=== PATIENT | female | born 1945 | race Caucasian/White ===

== ENCOUNTER 2016-05-31 05:25 | Emergency (ER) | payer MEDICARE, BC ==
[2016-05-31 05:39] VITALS: BP 145/69
--- NOTE | 2016-05-31 06:52 | ER Document Report ---
ED Extremity Problem, Upper - General Chief Complaint: Arm Pain Stated Complaint: LEFT ARM PAIN Time seen by provider: 06:47 Mode of Arrival: Ambulatory Information source: Patient Notes: 71-year-old female presents to ED for complaint of left hand and wrist pain. She states she was moving wood from the shed to her house and her hand and wrist started hurting. She says she does not remember hitting it she did not fall but the pain is gotten worse throughout the night. She took some Tylenol and used ice on it last night before she went to bed but this morning the pain was woke her up. TRAVEL OUTSIDE OF THE [place] IN LAST 30 DAYS: No - HPI Patient complains to provider of: Left, Hand, Wrist Onset: Yesterday Recent injury: Possibly Where: Home, Outdoors Quality of pain: Sharp, Throbbing Severity of pain: Severe Pain Level: 5 Associated symptoms: None Exacerbated by: Movement Relieved by: Nothing Similar symptoms previously: No Recently seen / treated by doctor: No - Related Data Allergies/Adverse Reactions: Sulfa (Sulfonamide Antibiotics) Allergy (Intermediate, Verified 05/31/16 05:31) Hallucinations morphine [Morphine] Allergy (Unknown, Verified 05/31/16 05:31) Unknown reaction prednisone Allergy (Verified 05/31/16 05:31) procaine [Procaine] Adverse Reaction (Severe, Verified 05/31/16 05:31) UNKNOWN NOVACAINE Allergy (Severe, Uncoded 05/31/16 05:31) Unknown reaction Past Medical History - General Information source: Patient, [facility] Records - Social History Smoking Status: Former Smoker Cigarette use (# per day): No Chew tobacco use (# tins/day): No Smoking Education Provided: No Frequency of alcohol use: Occasional Drug Abuse: None Lives with: Alone Family History: Malignancy - Past Medical History Cardiac Medical History: Reports: Hx Coronary Artery Disease - "CAROTID ARTERY STENOSIS" SUBCLAVIAN STENOSIS LEFT BYPASS GRAFT 10/2010, Hx Hypercholesterolemia , Hx Hypertension Pulmonary Medical History: Reports: Hx COPD - PER H&P" DENIES ON INTERVIEW EENT Medical History: Reports: Eyes Neurological Medical History: Reports: Hx Migraine Endocrine Medical History: Reports: None Renal/ Medical History: Reports: Other - Uterine fibroids and chronic cystitis Malignancy Medical History: Reports: None GI Medical History: Reports: None Musculoskeltal Medical History: Reports Hx Arthritis - LEFT HIP, Reports Hx Musculoskeletal Deformity Skin Medical History: Reports None Psychiatric Medical History: Reports: None Traumatic Medical History: Reports: None Infectious Medical History: Reports: None Past Surgical History: Reports: Hx Coronary Artery Bypass Graft - LEFT SUBCLAVIAN 10/2000, Hx Hysterectomy, Hx Orthopedic Surgery - Bilateral hip replacements, Hx Tubal Ligation, Hx Vascular Surgery, Other - Cataract surgery bilateral Review of Systems - Review of Systems Constitutional: No symptoms reported EENT: No symptoms reported Cardiovascular: No symptoms reported Respiratory: No symptoms reported Gastrointestinal: No symptoms reported Genitourinary: No symptoms reported Female Genitourinary: No symptoms reported Musculoskeletal: Other - Wrist and hand pain Skin: No symptoms reported Hematologic/Lymphatic: No symptoms reported Neurological/Psychological: No symptoms reported -: Yes All other systems reviewed and negative Physical Exam - Vital signs Vitals: Temp Pulse Resp BP Pulse Ox 97.4 F 87 16 145/69 H 98 05/31/16 05:35 05/31/16 05:35 05/31/16 05:35 05/31/16 05:35 05/31/16 05:35 Interpretation: Normal - General General appearance: Appears well, Alert - HEENT Head: Normocephalic, Atraumatic Eyes: Normal Pupils: PERRL - Respiratory Respiratory status: No respiratory distress Chest status: Nontender Breath sounds: Normal Chest palpation: Normal - Cardiovascular Rhythm: Regular Heart sounds: Normal auscultation Murmur: No - Abdominal Inspection: Normal Distension: No distension Bowel sounds: Normal Tenderness: Nontender Organomegaly: No organomegaly - Back Back: Normal, Nontender - Extremities General upper extremity: Normal color, Normal temperature General lower extremity: Normal inspection, Nontender, Normal color, Normal ROM , Normal temperature, Normal weight bearing. No: Alexandre's sign Wrist: Tender, Axial load of thumb pain, Limited ROM. No: Normal, Nontender, Abrasion, Deformity, Dislocation, Ecchymosis, Instability, Laceration, Navicular tenderness, Other Hand: Tender, Ecchymosis, No evidence of human bite, No evidence of FB, Swelling. No: Normal, Nontender, Abrasion, Deformity, Dislocation, Instability , Nail injury, Laceration, Tendon deficit, Other - Neurological Neuro grossly intact: Yes Cognition: Normal Orientation: AAOx4 Aragon Coma Scale Eye Opening: Spontaneous Tamy Coma Scale Verbal: Oriented Aragon Coma Scale Motor: Obeys Commands Tamy Coma Scale Total: 15 Speech: Normal Motor strength normal: LUE, RUE, LLE, RLE Sensory: Normal - Psychological Associated symptoms: Normal affect, Normal mood - Skin Skin Temperature: Warm Skin Moisture: Dry Skin Color: Normal Course - Re-evaluation Re-evalutation: 05/31/16 07:09 Discussed x-ray with patient and written report given to patient. Patient instructed to follow-up with orthopedics today. Patient refuses any medication except for Tylenol. She states she is allergic to all narcotics. - Vital Signs Vital signs: Temp Pulse Resp BP Pulse Ox 97.4 F 87 16 145/69 H 98 05/31/16 05:35 05/31/16 05:35 05/31/16 05:35 05/31/16 05:35 05/31/16 05:35 - Diagnostic Test Radiology reviewed: Image reviewed, Reports reviewed Discharge - Discharge Clinical Impression: Left hand pain, Arthritis Condition: Stable Disposition: HOME, SELF-CARE Additional Instructions: You were seen here today for pain in your left wrist and hand after moving wood last night. Your x-ray shows arthritic changes no acute fractures noted. A copy of the x- ray report was given to you to take to follow-up with your primary doctor and with orthopedics. Acetaminophen Acetaminophen may be taken for pain relief or fever control. It's much safer than aspirin, offering a wider range of "safe" dosages. It is safe during . Some brand names are Tylenol, Panadol, Datril, Anacin 3, Tempra, and Liquiprin. Acetaminophen can be repeated every four hours. The following are maximum recommended dosages: WEIGHT Dose Drops Elixir Chewable( 80mg) (LBS.) drprs=droppers tsp=teaspoon 6 40 mg .4 ml (1/2) 6-11 80 mg .8 ml (full) 1/2 tsp 1 tab 12-16 120 mg 1 1/2 drprs 3/4 tsp 1 1/2 tabs 17-23 160 mg 2 drprs 1 tsp 2 tabs 24-30 240 mg 3 drprs 1 1/2 tsp 3 tabs 30-35 320 mg 2 tsp 4 tabs 36-41 360 mg 2 1/4 tsp 4 1 /2 tabs 42-47 400 mg 2 1/2 tsp 5 tabs 48-53 480 mg 3 tsp 6 tabs 54-59 520 mg 3 1/4 tsp 6 1 /2 tabs 60-64 560 mg 3 1/2 tsp 7 tabs 65-70 600 mg 3 3/4 tsp 7 1 /2 tabs 71-76 640 mg 4 tsp 8 tabs 77-82 720 mg 4 1/2 tsp 9 tabs 83-88 800 mg 5 tsp 10 tabs >89 pounds or adults 650 mg to 900 mg Acetaminophen can be repeated every four hours. Maximum daily dose not to exceed 4000 mg. These maximum recommended dosages are slightly higher than the dosages written on the product container, but these dosages are very safe and well below the toxic dosage for acetaminophen. Ice & Elevation Apply ice packs frequently against the painful area. Many different schedules are recommended, such as "20 minutes on, 20 minutes off" or "one hour ice, two hours rest." If you need to work, you may need to go longer between ice treatments. You should plan to have the area ice packed AT LEAST one- fourth of the time. The ice should be applied over the wrap, tape, or splint, or over a layer of cloth -- not directly against the skin. Some ice bags have a built-in cloth and can be put directly on the skin. Your injured part should be elevated as much as possible over the next 48 hours. Try to keep the injury above the level of the heart. Avoid use of the injured area. Elevation and rest will decrease the swelling. FOLLOW-UP CARE: If you have been referred to a physician for follow-up care, call the physician s office for an appointment as you were instructed or within the next two days. If you experience worsening or a significant change in your symptoms, notify the physician immediately or return to the Emergency Department at any time for re-evaluation. Forms: Elevated Blood Pressure Referrals: CHAPO LI MD [Primary Care Provider] - Follow up as needed LING ESPINOZA MD [ACTIVE STAFF] - Follow up as needed
[2016-05-31] MEDS ORDERED: ACETAMINOPHEN 325 MG TABLET PO ONE (07:03)
== END 2016-05-31 07:13 | disposition home or self-care (01) ==
LOC: ER 05:25
DX: M19.042 Primary osteoarthritis, left hand (principal); M79.602 Pain in left arm; M79.642 Pain in left hand; M25.532 Pain in left wrist
CPT/HCPCS: 99283; 73110; A9270

== ENCOUNTER → 2018-01-27 | Outpatient (CLI) | payer MEDICARE, BC ==
--- NOTE | 2018-01-27 16:00 | RADIOLOGY REPORT (SQ) ---
EXAM DESCRIPTION: NM 3 PHASE BONE SCAN COMPLETED DATE/TIME: 01/27/2018 3:44 pm REASON FOR STUDY: BILATERAL HIP PAIN M25.551 PAIN IN RIGHT HIP M25.552 PAIN IN LEFT HIP COMPARISON: None recent. RADIONUCLIDE AND DOSE: Total of 42.7 millicuries Tc99m MDP. 1st dose of 21.1 mCi infiltrated. The route of agent administration: Intravenous. ADDITIONAL DRUGS AND DOSES: None. TECHNIQUE: Following injection of the radiopharmaceutical, serial blood flow images acquired. Equil ibrium blood pool images then acquired. Routine delayed images at 3 hour acquired of the areas of cl inical concern with additional focused images as needed. AREA OF INTEREST: Bilateral hips. LIMITATIONS: None. FINDINGS: VASCULAR FLOW IMAGES: No asymmetry or focal areas of hyperemia. BLOOD POOL IMAGES: No asymmetry or focal areas of soft-tissue hyper-perfusion. BONES: Expected photopenia associated with bilateral hip arthroplasty. Artifact from the urinary hilton dder. KIDNEYS: Kidneys not imaged. OTHER: No other significant finding. IMPRESSION: No evidence of infection or loosening. COMMENT: Quality measure 147: Current bone scan is compared with any available plain radiographs, p rior bone scans, and CT/MRI. TECHNICAL DOCUMENTATION: JOB ID: [id number] [employer]- All Rights Reserved Reading location - IP/workstation name: [email or web address]
== END ==
LOC: RAD 10:32
PROVIDERS: ATTEND Orthopaedic Surgery
DX: M25.551 Pain in right hip (principal); M25.552 Pain in left hip
CPT/HCPCS: 78315; A9561; Q9969

== ENCOUNTER → 2018-02-06 | Outpatient (CLI) | payer MEDICARE, BC ==
[2018-02-06 09:37] LABS: ABSOLUTE EOSINOPHILS # (AUTO) 0.2 10^3/uL (0.0-0.6); ABSOLUTE LYMPHOCYTES (AUTO) 1.7 10^3/uL (0.5-4.7); ABSOLUTE MONOCYTES (AUTO) 0.5 10^3/uL (0.1-1.4); ABSOLUTE NEUT (AUTO) 4.3 10^3/uL (1.7-8.2); BASOPHILS % (AUTO) 0.6 % (0-2); EOSINOPHILS % (AUTO) 3.5 % (0-6); HEMATOCRIT 31.8 % (36.0-47.0); HEMOGLOBIN 10.9 g/dL (12.0-15.5); LYMPHOCYTES % (AUTO) 24.9 % (13-45); MEAN CORPUSCULAR HEMOGLOBIN 35.6 pg (27.0-33.4); MEAN CORPUSCULAR HGB CONC 34.4 g/dL (32.0-36.0); MEAN CORPUSCULAR VOLUME 103 fl (80-97); MONOCYTES % (AUTO) 6.8 % (3-13); PLATELET COUNT 371 10^3/uL (150-450); RED BLOOD COUNT 3.07 10^6/uL (3.72-5.28); RED CELL DISTRIBUTION WIDTH 14.5 % (11.5-14.0); SEGMENTED NEUTROPHILS % (AUTO) 64.2 % (42-78); TOTAL CELLS COUNTED % (AUTO) 100 %; WHITE BLOOD COUNT 6.7 10^3/uL (4.0-10.5)
[2018-02-06 10:17] LABS: ERYTHROCYTE SEDIMENTATION RATE 64 mm/hr (0-30)
[2018-02-06 11:39] LABS: ANION GAP 9 (5-19); BLOOD UREA NITROGEN 29 mg/dL (7-20); CALCIUM 9.4 mg/dL (8.4-10.2); CARBON DIOXIDE 29 mmol/L (22-30); CHLORIDE 99 mmol/L (98-107); GLUCOSE 100 mg/dL (75-110); POTASSIUM 3.9 mmol/L (3.6-5.0); SODIUM 136.7 mmol/L (137-145)
[2018-02-06 11:41] LABS: C-REACTIVE PROTEIN < 5.0 mg/L (<10.0)
== END ==
LOC: OD 08:08
PROVIDERS: ATTEND Orthopaedic Surgery
DX: M54.5 Low back pain (principal)
CPT/HCPCS: 36415; 80048; 85025; 85652; 86140

== ENCOUNTER 2018-07-24 16:18 | Emergency (ER) | payer MEDICARE, BC ==
--- NOTE | 2018-07-24 16:50 | ER Document Report ---
ED Medical Screen (RME) - General Chief Complaint: Fall Injury Stated Complaint: FALL Time Seen by Provider: 07/24/18 16:40 Primary Care Provider: LING ESPINOZA MD [Primary Care Provider] - Follow up as needed Mode of Arrival: Wheelchair Information source: Patient Notes: Patient is a 73-year-old female who presents to the emergency department doing a head CT. Patient reports she fell on . She states she lost consciousness after the fall, she states she continues to have slurred speech since as well as blurred vision and difficulty writing. Patient was initially seen by her primary care provider today however they wanted her to be transported to the emergency department. Exam: Patient is awake, alert and answering questions appropriately. Ecchymosis noted around both eyes. I have greeted and performed a rapid initial assessment of this patient. A comprehensive ED assessment and evaluation of the patient, analysis of test results and completion of the medical decision making process will be conducted by additional ED providers. Dictation of this chart was performed using voice recognition software; therefore, there may be some unintended grammatical errors. TRAVEL OUTSIDE OF THE [place] IN LAST 30 DAYS: No - Related Data Allergies/Adverse Reactions: Sulfa (Sulfonamide Antibiotics) Allergy (Intermediate, Verified 05/31/16 05:31) Hallucinations morphine [Morphine] Allergy (Unknown, Verified 05/31/16 05:31) Unknown reaction prednisone Allergy (Verified 05/31/16 05:31) procaine [Procaine] Adverse Reaction (Severe, Verified 05/31/16 05:31) UNKNOWN NOVACAINE Allergy (Severe, Uncoded 05/31/16 05:31) Unknown reaction Past Medical History - Past Medical History Cardiac Medical History: Reports: Hx Coronary Artery Disease - "CAROTID ARTERY STENOSIS" SUBCLAVIAN STENOSIS LEFT BYPASS GRAFT 10/2010, Hx Hypercholesterolemia, Hx Hypertension Pulmonary Medical History: Reports: Hx COPD - PER H&P" DENIES ON INTERVIEW Neurological Medical History: Reports: Hx Migraine Renal/ Medical History: Denies: Hx Peritoneal Dialysis Musculoskeltal Medical History: Reports Hx Arthritis - LEFT HIP, Reports Hx Musculoskeletal Deformity Past Surgical History: Reports: Hx Coronary Artery Bypass Graft - LEFT SUBCLAVIAN 10/2000, Hx Hysterectomy, Hx Orthopedic Surgery - Bilateral hip replacements, Hx Tubal Ligation, Hx Vascular Surgery, Other - Cataract surgery bilateral - Immunizations Hx Diphtheria, Pertussis, Tetanus Vaccination: Yes Physical Exam - Vital signs Vitals: Temp Pulse Resp BP Pulse Ox 97.3 F 84 17 153/75 H 95 07/24/18 16:32 07/24/18 16:32 07/24/18 16:32 07/24/18 16:32 07/24/18 16:32 Course - Vital Signs Vital signs: Temp Pulse Resp BP Pulse Ox 97.3 F 84 17 153/75 H 95 07/24/18 16:32 07/24/18 16:32 07/24/18 16:32 07/24/18 16:32 07/24/18 16:32 Doctor's Discharge - Discharge Referrals: LING ESPINOZA MD [Primary Care Provider] - Follow up as needed
--- NOTE | 2018-07-24 17:16 | RADIOLOGY REPORT (SQ) ---
EXAM DESCRIPTION: CT HEAD WITHOUT COMPLETED DATE/TIME: 07/24/2018 5:11 pm REASON FOR STUDY: fall with loss of consciousness COMPARISON: None. TECHNIQUE: Axial images acquired through the brain without intravenous contrast. Images reviewed wi th bone, brain and subdural windows. Additional sagittal and coronal reconstructions were generated. Images stored on PACS. All CT scanners at this facility use dose modulation, iterative reconstruction, and/or weight based d osing when appropriate to reduce radiation dose to as low as reasonably achievable (ALARA). [facility]: Dose Right [facility]: CareDose [facility]: Dose Right [facility]: Teradose 4D [facility]: Smart [employer] RADIATION DOSE: CT Rad equipment meets quality standard of care and radiation dose reduction techniq ues were employed. CTDIvol: 53.2 mGy. DLP: 937 mGy-cm.mGy. LIMITATIONS: None. FINDINGS: VENTRICLES: Prominent. CEREBRUM: No masses. No hemorrhage. No midline shift. Areas of low density in the white matter mos t likely due to chronic micro-vascular ischemic change. No evidence for acute infarction. CEREBELLUM: No masses. No hemorrhage. No alteration of density. No evidence for acute infarction. EXTRAAXIAL SPACES: Age-related involutional change. No fluid collections. No masses. ORBITS AND GLOBE: Hardware in the left eyelid. No intra- or extraconal masses. Normal contour of gl obe without masses. CALVARIUM: No fracture. PARANASAL SINUSES: No fluid or mucosal thickening. SOFT TISSUES: No mass or hematoma. OTHER: No other significant finding. IMPRESSION: CHRONIC CHANGES OF ATROPHY AND MICROVASCULAR ISCHEMIA. NO ACUTE PROCESS. EVIDENCE OF ACUTE STROKE: NO. TECHNICAL DOCUMENTATION: JOB ID: [id number] Quality ID # [id number]: Final reports with documentation of one or more dose reduction techniques (e.g., Au tomated exposure control, adjustment of the mA and/or kV according to patient size, use of iterative reconstruction technique) 2010 [employer]- All Rights Reserved Reading location - IP/workstation name: [email or web address]
--- NOTE | 2018-07-24 17:18 | RADIOLOGY REPORT (SQ) ---
EXAM DESCRIPTION: CT CERVICAL SPINE WITHOUT COMPLETED DATE/TIME: 07/24/2018 5:11 pm REASON FOR STUDY: fall with loss of consciousness COMPARISON: None. TECHNIQUE: Axial images acquired through the cervical spine without intravenous contrast. Images re viewed with lung, soft tissue and bone windows. Reconstructed coronal and sagittal MPR images review ed. Images stored on PACS. All CT scanners at this facility use dose modulation, iterative reconstruction, and/or weight based d osing when appropriate to reduce radiation dose to as low as reasonably achievable (ALARA). [facility]: Dose Right [facility]: CareDose [facility]: Dose Right [facility]: Teradose 4D [facility]: Smart [employer] RADIATION DOSE: CT Rad equipment meets quality standard of care and radiation dose reduction techniq ues were employed. CTDIvol: 17.5 mGy. DLP: 397 mGy-cm. mGy. LIMITATIONS: None. FINDINGS: ALIGNMENT: Anatomic. MINERALIZATION: Normal. VERTEBRAL BODIES: No fractures or dislocation. DISCS: Multilevel disc space narrowing with osteophytes. FACETS, LATERAL MASSES, POSTERIOR ELEMENTS: Facet arthropathy. No fractures. No dislocation. No ac ngoc findings. HARDWARE: None in the spine. VISUALIZED RIBS: No fractures. LUNG APICES AND SOFT TISSUES: No significant or acute findings. OTHER: No other significant finding. IMPRESSION: CHRONIC DEGENERATIVE CHANGES. NO ACUTE FINDINGS. TECHNICAL DOCUMENTATION: JOB ID: [id number] Quality ID # [id number]: Final reports with documentation of one or more dose reduction techniques (e.g., Au tomated exposure control, adjustment of the mA and/or kV according to patient size, use of iterative reconstruction technique) 2010 [employer]- All Rights Reserved Reading location - IP/workstation name: [email or web address]
--- NOTE | 2018-07-24 18:02 | ER Document Report ---
ED General - General Chief Complaint: Fall Injury Stated Complaint: FALL Time Seen by Provider: 07/24/18 16:40 Primary Care Provider: LING ESPINOZA MD [ACTIVE STAFF] - Follow up as needed Mode of Arrival: Wheelchair Information source: Patient Notes: This is a 73-year-old female with a history of a chronic left Perez's palsy that is referred to the emergency room after a fall 4 nights ago. Patient states last , she awoke in the middle the night having to go to the bathroom. She states she felt absolutely fine at that time. She states she rushed to the bathroom and the lights were off and she fell and hit her head. She does state there was some loss of consciousness at that time. She does states she does have some ecchymoses around the nose, headaches and a sensation of disequilibrium. Patient went to urgent care today and was referred to the emergency room. TRAVEL OUTSIDE OF THE [place] IN LAST 30 DAYS: No - HPI Onset: Last week Onset/Duration: Gradual Quality of pain: Dull Severity: Mild Pain Level: 2 Associated symptoms: denies: Chest pain, Fever, Shortness of breath Exacerbated by: Denies Relieved by: Denies Similar symptoms previously: No Recently seen / treated by doctor: Yes - Related Data Allergies/Adverse Reactions: Sulfa (Sulfonamide Antibiotics) Allergy (Intermediate, Verified 05/31/16 05:31) Hallucinations morphine [Morphine] Allergy (Unknown, Verified 05/31/16 05:31) Unknown reaction prednisone Allergy (Verified 05/31/16 05:31) procaine [Procaine] Adverse Reaction (Severe, Verified 05/31/16 05:31) UNKNOWN NOVACAINE Allergy (Severe, Uncoded 05/31/16 05:31) Unknown reaction Past Medical History - General Information source: Patient - Social History Smoking Status: Never Smoker Cigarette use (# per day): No Chew tobacco use (# tins/day): No Frequency of alcohol use: None Drug Abuse: None Lives with: Family Family History: Malignancy Patient has suicidal ideation: No Patient has homicidal ideation: No - Past Medical History Cardiac Medical History: Reports: Hx Coronary Artery Disease - "CAROTID ARTERY STENOSIS" SUBCLAVIAN STENOSIS LEFT BYPASS GRAFT 10/2010, Hx Hypercholesterolemia, Hx Hypertension Pulmonary Medical History: Reports: Hx COPD - PER H&P" DENIES ON INTERVIEW Neurological Medical History: Reports: Hx Migraine Renal/ Medical History: Denies: Hx Peritoneal Dialysis Musculoskeletal Medical History: Reports Hx Arthritis - LEFT HIP, Reports Hx Musculoskeletal Deformity Past Surgical History: Reports: Hx Coronary Artery Bypass Graft - LEFT SUBCLAVIAN 10/2000, Hx Hysterectomy, Hx Orthopedic Surgery - Bilateral hip replacements, Hx Tubal Ligation, Hx Vascular Surgery, Other - Cataract surgery bilateral - Immunizations Hx Diphtheria, Pertussis, Tetanus Vaccination: Yes Review of Systems - Review of Systems Constitutional: denies: Chills, Fever EENT: See HPI Cardiovascular: denies: Chest pain, Palpitations, Heart racing Respiratory: denies: Cough, Hemoptysis, Short of breath Gastrointestinal: denies: Diarrhea, Vomiting Genitourinary: No symptoms reported Female Genitourinary: No symptoms reported Musculoskeletal: See HPI Skin: See HPI Hematologic/Lymphatic: No symptoms reported Neurological/Psychological: See HPI Physical Exam - Vital signs Vitals: Temp Pulse Resp BP Pulse Ox 97.3 F 84 17 153/75 H 95 07/24/18 16:32 07/24/18 16:32 07/24/18 16:32 07/24/18 16:32 07/24/18 16:32 Notes: Physical exam: GENERAL: This is a 73-year-old female, she is alert and oriented x3, no acute distress. HEAD: Atraumatic, normocephalic. EYES: Pupils equal round and reactive to light, extraocular movements intact, sclera anicteric, conjunctiva are normal. ENT: TMs normal, nares patent, oropharynx clear without exudates. Moist mucous membranes. NECK: Normal range of motion, supple without obvious mass or JVD. LUNGS: Breath sounds clear to auscultation bilaterally and equal. No wheezes rales or rhonchi. HEART: Regular rate and rhythm without murmurs, rubs or gallops. ABDOMEN: Soft, normoactive bowel sounds. No tenderness to palpation. No guarding, no rebound. No masses appreciated. EXTREMITIES: Normal range of motion, no pitting or edema. No clubbing or cyanosis. NEUROLOGICAL: Cranial nerves II through XII grossly intact. Normal speech, moving all extremities. PSYCH: Normal mood, normal affect. SKIN: Warm, Dry, normal turgor, no rashes or lesions noted. Course - Vital Signs Vital signs: Temp Pulse Resp BP Pulse Ox 97.6 F 78 18 165/76 H 96 07/24/18 21:10 07/24/18 21:10 07/24/18 21:10 07/24/18 21:10 07/24/18 21:10 - Diagnostic Test Radiology reviewed: Image reviewed, Reports reviewed - CT of the head shows no bleed. MRI of the brain shows no evidence of stroke. Discharge - Discharge Clinical Impression: Head contusion status post fall, Facial contusion Condition: Stable Disposition: HOME, SELF-CARE Additional Instructions: As we discussed, the CT of the head showed no evidence of bleed. The MRI of the brain showed no evidence of stroke. I do want you to follow-up with both your primary care doctor (Dr. Williamson) as well as Dr. Espinoza as planned. Bring a copy of today's test with you when you go in for evaluation. Continue current medicines. Be very Full when ambulating because it is not uncommon to be dizzy after a fall and head contusion. Return to the emergency room for any weakness, worsening dizziness or any concerns or getting worse. Referrals: LING ESPINOZA MD [ACTIVE STAFF] - Follow up as needed
[2018-07-24 21:12] VITALS: BP 165/76
--- NOTE | 2018-07-24 21:22 | RADIOLOGY REPORT (SQ) ---
EXAM DESCRIPTION: MR BRAIN WITHOUT IV CONTRAST COMPLETED DATE/TME: 07/24/2018 17:58 CLINICAL HISTORY: 73 years, Female, fall, warner, disequilibrium COMPARISON: CT from today's date TECHNIQUE: 280 Images stored on PACS. LIMITATIONS: None. FINDINGS: Sagittal midline anatomic structures show an unremarkable appearance to the pituitary and suprasellar regions. The globes are intact. The paranasal sinuses and mastoid air cells are well aerated. Normal flow void in visualized intracranial vessels. The visualized cranial nerve complex these are unremarkable. There is no intra or extra-axial hemorrhage. Diffusion-weighted images are normal, without evidence for acute infarct. No evidence for mass or midline shift. Diffuse age-appropriate atrophy. Areas of increased FLAIR/T2 white matter signal in the periventricular and subcortical regions consistent with sequelae of small vessel ischemic change. IMPRESSION: Negative for acute intracranial abnormality. Atrophy. Small vessel ischemic change. copyright 2010 [employer]- All Rights Reserved
== END 2018-07-24 21:54 | disposition home or self-care (01) ==
LOC: ER 16:18
DX: S00.93XA Contusion of unspecified part of head, initial encounter (principal); S00.83XA Contusion of other part of head, initial encounter; R55 Syncope and collapse; W19.XXXA Unspecified fall, initial encounter; I25.10 Atherosclerotic heart disease of native coronary artery without angina pectoris; J44.9 Chronic obstructive pulmonary disease, unspecified
CPT/HCPCS: 70450; 70551; 72125; 99284

== ENCOUNTER 2019-03-10 18:26 | Emergency (ER) | payer MEDICARE, BC ==
--- NOTE | 2019-03-10 18:41 | ER Document Report ---
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 Patient denies trauma. Denies pain to her nose. Reports she had to hold pressure for a while to get it stop bleeding. She reports it finally stopped bleeding. Patient also reports that she is extremely thirsty requesting something to drink and reports that she is urinating frequently. Denies history of diabetes. Denies history of high blood pressure. I have greeted and performed a rapid initial assessment of this patient. A comprehensive ED assessment and evaluation of the patient, analysis of test results and completion of the medical decision making process will be conducted by additional ED providers. Dictation of this chart was performed using voice recognition software; therefore, there may be some unintended grammatical errors. TRAVEL OUTSIDE OF THE [place] IN LAST 30 DAYS: No - Related Data Allergies/Adverse Reactions: Sulfa (Sulfonamide Antibiotics) Allergy (Intermediate, Verified 03/10/19 18:32) Hallucinations morphine [Morphine] Allergy (Unknown, Verified 03/10/19 18:32) Unknown reaction prednisone Allergy (Verified 03/10/19 18:32) procaine [Procaine] Adverse Reaction (Severe, Verified 03/10/19 18:32) UNKNOWN NOVACAINE Allergy (Severe, Uncoded 03/10/19 18:32) Unknown reaction Past Medical History - Social History Chew tobacco use (# tins/day): No Frequency of alcohol use: None Drug Abuse: None - Past Medical History Cardiac Medical History: Reports: Hx Coronary Artery Disease - "CAROTID ARTERY STENOSIS" SUBCLAVIAN STENOSIS LEFT BYPASS GRAFT 10/2010, Hx Hypercholesterolemia, Hx Hypertension Pulmonary Medical History: Reports: Hx COPD - PER H&P" DENIES ON INTERVIEW Neurological Medical History: Reports: Hx Migraine. Denies: Hx Parkinson's Disease Renal/ Medical History: Denies: Hx Peritoneal Dialysis Musculoskeltal Medical History: Reports Hx Arthritis - LEFT HIP, Reports Hx Musculoskeletal Deformity Past Surgical History: Reports: Hx Coronary Artery Bypass Graft - LEFT SUBCLAVIAN 10/2000, Hx Hysterectomy, Hx Orthopedic Surgery - Bilateral hip replacements, Hx Tubal Ligation, Hx Vascular Surgery, Other - Cataract surgery bilateral - Immunizations Hx Diphtheria, Pertussis, Tetanus Vaccination: Yes Physical Exam - Vital signs Vitals: Temp Pulse Resp BP Pulse Ox 98.2 F 107 H 18 171/78 H 98 03/10/19 18:28 03/10/19 18:28 03/10/19 18:28 03/10/19 18:28 03/10/19 18:28 Course - Vital Signs Vital signs: Temp Pulse Resp BP Pulse Ox 98.2 F 107 H 18 171/78 H 98 03/10/19 18:28 03/10/19 18:28 03/10/19 18:28 03/10/19 18:28 03/10/19 18:28 Doctor's Discharge - Discharge Referrals: CHAPO LI MD [Primary Care Provider] - Follow up as needed
[2019-03-10 19:25] LABS: ABSOLUTE LYMPHOCYTES (AUTO) 1.4 10^3/uL (0.5-4.7); ABSOLUTE MONOCYTES (AUTO) 0.2 10^3/uL (0.1-1.4); ABSOLUTE NEUT (AUTO) 4.8 10^3/uL (1.7-8.2); BASOPHILS % (AUTO) 0.2 % (0-2); EOSINOPHILS % (AUTO) 0.5 % (0-6); HEMATOCRIT 38.7 % (36.0-47.0); HEMOGLOBIN 13.5 g/dL (12.0-15.5); LYMPHOCYTES % (AUTO) 22.1 % (13-45); MEAN CORPUSCULAR HEMOGLOBIN 36.6 pg (27.0-33.4); MEAN CORPUSCULAR VOLUME 105 fl (80-97); MONOCYTES % (AUTO) 2.6 % (3-13); PLATELET COUNT 286 10^3/uL (150-450); RED CELL DISTRIBUTION WIDTH 14.4 % (11.5-14.0); SEGMENTED NEUTROPHILS % (AUTO) 74.6 % (42-78); TOTAL CELLS COUNTED % (AUTO) 100 %; WHITE BLOOD COUNT 6.4 10^3/uL (4.0-10.5)
[2019-03-10 19:33] LABS: APPEARANCE,URINE SLIGHTLY-CLOUDY; BILIRUBIN,URINE NEGATIVE (NEGATIVE); COLOR,URINE YELLOW; GLUCOSE, URINE NEGATIVE (NEGATIVE); KETONES,URINE TRACE mg/dL (NEGATIVE); LEUKOCYTE ESTERASE,URINE MODERATE (NEGATIVE); NITRITE,URINE NEGATIVE (NEGATIVE); PROTEIN,URINE NEGATIVE (NEGATIVE); URINE SPECIFIC GRAVITY 1.012; UROBILINOGEN,URINE NEGATIVE mg/dL (<2.0)
[2019-03-10 19:43] LABS: ALBUMIN 4.6 g/dL (3.5-5.0); ALKALINE PHOSPHATASE 94 U/L (38-126); ANION GAP 9 (5-19); ASPARTATE AMINO TRANSFERASE 91 U/L (14-36); BILIRUBIN,DIRECT 0.1 mg/dL (0.0-0.4); BILIRUBIN,TOTAL 0.6 mg/dL (0.2-1.3); BLOOD UREA NITROGEN 22 mg/dL (7-20); CALCIUM 9.8 mg/dL (8.4-10.2); CARBON DIOXIDE 30 mmol/L (22-30); CHLORIDE 98 mmol/L (98-107); GLUCOSE 117 mg/dL (75-110); POTASSIUM 3.3 mmol/L (3.6-5.0); TOTAL PROTEIN 8.1 g/dL (6.3-8.2)
[2019-03-10] MEDS ORDERED: CEPHALEXIN 500 MG CAPSULE PO ONE (20:34)
--- NOTE | 2019-03-10 20:58 | ER Document Report ---
ED General - General Chief Complaint: Nose Bleed Stated Complaint: NOSE BLEED Time Seen by Provider: 03/10/19 18:34 Primary Care Provider: CHAPO LI MD [Primary Care Provider] - Follow up as needed Mode of Arrival: Ambulatory TRAVEL OUTSIDE OF THE [place] IN LAST 30 DAYS: No - HPI Notes: Patient is a very pleasant 73-year-old female who presents emergency department for evaluation. She states she had a nosebleed, nontraumatic in origin, that lasted about an hour. She states it was "gushing." Patient also states she is been incredibly thirsty, has had increased urination, frequency, and dysuria. She denies any fevers or chills. No nausea or vomiting. She denies any pain of any sort at this time. - Related Data Allergies/Adverse Reactions: Sulfa (Sulfonamide Antibiotics) Allergy (Intermediate, Verified 03/10/19 18:32) Hallucinations morphine [Morphine] Allergy (Unknown, Verified 03/10/19 18:32) Unknown reaction prednisone Allergy (Verified 03/10/19 18:32) procaine [Procaine] Adverse Reaction (Severe, Verified 03/10/19 18:32) UNKNOWN NOVACAINE Allergy (Severe, Uncoded 03/10/19 18:32) Unknown reaction Past Medical History - General Information source: Patient - Social History Smoking Status: Former Smoker Chew tobacco use (# tins/day): No Frequency of alcohol use: None Drug Abuse: None Family History: Malignancy Patient has suicidal ideation: No Patient has homicidal ideation: No - Past Medical History Cardiac Medical History: Reports: Hx Hypercholesterolemia, Hx Hypertension, Hx Peripheral Vascular Disease - "CAROTID ARTERY STENOSIS" SUBCLAVIAN STENOSIS LEFT BYPASS GRAFT 10/2010 Pulmonary Medical History: Reports: Hx COPD - PER H&P" DENIES ON INTERVIEW Neurological Medical History: Reports: Hx Migraine, Other - Perez's palsy. Denies: Hx Parkinson's Disease Renal/ Medical History: Denies: Hx Peritoneal Dialysis Musculoskeletal Medical History: Reports Hx Arthritis - LEFT HIP, Reports Hx Musculoskeletal Deformity Past Surgical History: Reports: Hx Coronary Artery Bypass Graft - LEFT SUBCLAVIAN 10/2000, Hx Hysterectomy, Hx Orthopedic Surgery - Bilateral hip replacements, Hx Tubal Ligation, Hx Vascular Surgery, Other - Cataract surgery bilateral - Immunizations Hx Diphtheria, Pertussis, Tetanus Vaccination: Yes Review of Systems - Review of Systems Constitutional: No symptoms reported EENT: See HPI Cardiovascular: No symptoms reported Respiratory: No symptoms reported Gastrointestinal: No symptoms reported Genitourinary: See HPI Musculoskeletal: No symptoms reported Skin: No symptoms reported Neurological/Psychological: No symptoms reported Physical Exam - Vital signs Vitals: Temp Pulse Resp BP Pulse Ox 98.2 F 107 H 18 171/78 H 98 03/10/19 18:28 03/10/19 18:28 03/10/19 18:28 03/10/19 18:28 03/10/19 18:28 - Notes Notes: Vital signs reviewed, please refer to chart. Head is normocephalic, atraumatic. Pupils equal round, reactive to light. Nares are patent. She has a scant amount of bright red blood on the right, even less than the left. No active bleeding. Neck is supple without meningismus. Heart is regular rate and rhythm. Lungs are clear to auscultation bilaterally. Abdomen is soft, nontender, normoactive bowel sounds throughout. No CVA tenderness noted. Extremities without cyanosis, clubbing. Posterior calves are nontender. Peripheral pulses are equal. Skin is warm and dry. Patient is awake, alert, neurological exam is nonfocal. Course - Re-evaluation Re-evalutation: 03/10/19 20:58 Patient presents emergency department for evaluation. Laboratory investigations revealed her hemoglobin is actually better than it has been in the past. She has large leukocyte esterase and increased white blood cells in her urine. She is treated for UTI given her symptoms. First dose of Keflex given here. I will send her home with a prescription for same. She is given concerns for nosebleeds as well. She is to return to the ED with worsening or new concerning symptoms of any sort. - Vital Signs Vital signs: Temp Pulse Resp BP Pulse Ox 98.2 F 107 H 18 171/78 H 98 03/10/19 18:28 03/10/19 18:28 03/10/19 18:28 03/10/19 18:28 03/10/19 18:28 - Laboratory Result Diagrams: 03/10/19 19:03 03/10/19 19:03 Laboratory results interpreted by me: 03/10/19 03/10/19 03/10/19 19:03 19:03 19:03 RBC 3.70 L MCV 105 H MCH 36.6 H RDW 14.4 H [place] % (Auto) 2.6 L Sodium 136.7 L Potassium 3.3 L BUN 22 H Est GFR ( Amer) 57 L Est GFR (MDRD) Non-Af 47 L Glucose 117 H AST 91 H Urine Ketones TRACE H Urine Blood SMALL H Ur Leukocyte Esterase MODERATE H Discharge - Discharge Clinical Impression: Epistaxis not due to trauma Urinary tract infection Qualifiers: Urinary tract infection type: site unspecified Hematuria presence: without hematuria Qualified Code(s): N39.0 - Urinary tract infection, site not specified Condition: Stable Disposition: HOME, SELF-CARE Instructions: Cephalexin ([facility]), Urinary Tract Infection ([facility]), Nosebleed Instructions ([facility]) Additional Instructions: Rest. Avoid any trauma to the nose, blowing of the nose. If your nosebleed resumes, pinch anteriorly, hold pressure for 30 minutes. Return if you are unable to get it to stop. Take all the antibiotics as prescribed, starting tomorrow. Stay well-hydrated. Follow-up with your doctor next week. If you develop worsening or new concerning symptoms of any sort, please return immediately to the emergency department for evaluation. Referrals: CHAPO LI MD [Primary Care Provider] - Follow up as needed
[2019-03-10 21:14] VITALS: BP 133/78
== END 2019-03-10 21:13 | disposition home or self-care (01) ==
LOC: ER 18:26
DX: N39.0 Urinary tract infection, site not specified (principal); R04.0 Epistaxis; R63.1 Polydipsia; R35.0 Frequency of micturition; R30.0 Dysuria; Z87.891 Personal history of nicotine dependence; I10 Essential (primary) hypertension; J44.9 Chronic obstructive pulmonary disease, unspecified
CPT/HCPCS: 99283; 36415; 85025; 80053; 81001; A9270

== ENCOUNTER 2019-08-11 12:01 | Inpatient (IN) | payer MEDICARE, BC ==
--- NOTE | 2019-08-11 12:18 | ER Document Report ---
ED Medical Screen (RME) - General Chief Complaint: Dizziness Stated Complaint: Sinus pressure sinus drainage cough Time Seen by Provider: 08/11/19 12:12 Primary Care Provider: CHAPO LI MD [Primary Care Provider] - Follow up as needed Mode of Arrival: Wheelchair Information source: Patient Notes: 74-year-old female presents to ED for complaint of dizziness that started this morning. She states she has had a cough congestion sinus pressure for about 3 weeks. She states she has not had any fevers. She states the dizziness was so bad that she walked right into a wall. She states she is having some congestion and sinus pressure. She is alert oriented respirations regular nonlabored speaking in full sentences. I have reviewed her medical history and this is up-to-date and she does not smoke drink or use any drugs she is a former smoker. I have greeted and performed a rapid initial assessment of this patient. A comprehensive ED assessment and evaluation of the patient, analysis of test results and completion of medical decision making process will be conducted by an additional ED providers. TRAVEL OUTSIDE OF THE [place] IN LAST 30 DAYS: No - Related Data Allergies/Adverse Reactions: Sulfa (Sulfonamide Antibiotics) Allergy (Intermediate, Verified 03/10/19 18:32) Hallucinations morphine [Morphine] Allergy (Unknown, Verified 03/10/19 18:32) Unknown reaction prednisone Allergy (Verified 03/10/19 18:32) procaine [Procaine] Adverse Reaction (Severe, Verified 03/10/19 18:32) UNKNOWN NOVACAINE Allergy (Severe, Uncoded 03/10/19 18:32) Unknown reaction Past Medical History - Past Medical History Cardiac Medical History: Reports: Hx Coronary Artery Disease - "CAROTID ARTERY STENOSIS" SUBCLAVIAN STENOSIS LEFT BYPASS GRAFT 10/2010, Hx Hypercholesterolemia, Hx Hypertension, Hx Peripheral Vascular Disease - "CAROTID ARTERY STENOSIS" SUBCLAVIAN STENOSIS LEFT BYPASS GRAFT 10/2010 Pulmonary Medical History: Reports: Hx COPD - PER H&P" DENIES ON INTERVIEW Neurological Medical History: Reports: Hx Migraine. Denies: Hx Parkinson's Disease Renal/ Medical History: Denies: Hx Peritoneal Dialysis Musculoskeltal Medical History: Reports Hx Arthritis - LEFT HIP, Reports Hx Musculoskeletal Deformity Past Surgical History: Reports: Hx Coronary Artery Bypass Graft - LEFT SUBCLAVI AN 10/2000, Hx Hysterectomy, Hx Orthopedic Surgery - Bilateral hip replacements, Hx Tubal Ligation, Hx Vascular Surgery, Other - Cataract surgery bilateral - Immunizations Hx Diphtheria, Pertussis, Tetanus Vaccination: Yes Physical Exam - Vital signs Vitals: Temp Pulse Resp BP Pulse Ox 97.7 F 87 18 111/62 97 08/11/19 12:05 08/11/19 12:05 08/11/19 12:05 08/11/19 12:05 08/11/19 12:05 Course - Vital Signs Vital signs: Temp Pulse Resp BP Pulse Ox 97.7 F 87 18 111/62 97 08/11/19 12:05 08/11/19 12:05 08/11/19 12:05 08/11/19 12:05 08/11/19 12:05 Doctor's Discharge - Discharge Referrals: CHAPO LI MD [Primary Care Provider] - Follow up as needed
[2019-08-11 12:58] LABS: ABSOLUTE LYMPHOCYTES (AUTO) 0.8 10^3/uL (0.5-4.7); ABSOLUTE MONOCYTES (AUTO) 0.5 10^3/uL (0.1-1.4); ABSOLUTE NEUT (AUTO) 4.5 10^3/uL (1.7-8.2); BASOPHILS % (AUTO) 0.3 % (0-2); EOSINOPHILS % (AUTO) 0.3 % (0-6); HEMATOCRIT 41.5 % (36.0-47.0); HEMOGLOBIN 14.6 g/dL (12.0-15.5); LYMPHOCYTES % (AUTO) 13.9 % (13-45); MEAN CORPUSCULAR HEMOGLOBIN 36.3 pg (27.0-33.4); MEAN CORPUSCULAR HGB CONC 35.1 g/dL (32.0-36.0); MEAN CORPUSCULAR VOLUME 103 fl (80-97); MONOCYTES % (AUTO) 8.1 % (3-13); PLATELET COUNT 307 10^3/uL (150-450); RED BLOOD COUNT 4.02 10^6/uL (3.72-5.28); RED CELL DISTRIBUTION WIDTH 14.9 % (11.5-14.0); SEGMENTED NEUTROPHILS % (AUTO) 77.4 % (42-78); TOTAL CELLS COUNTED % (AUTO) 100 %; WHITE BLOOD COUNT 5.8 10^3/uL (4.0-10.5)
[2019-08-11 13:11] LABS: ALBUMIN 4.4 g/dL (3.5-5.0); ALKALINE PHOSPHATASE 131 U/L (38-126); ANION GAP 5 (5-19); ASPARTATE AMINO TRANSFERASE 37 U/L (14-36); BILIRUBIN,TOTAL 0.8 mg/dL (0.2-1.3); BLOOD UREA NITROGEN 22 mg/dL (7-20); CALCIUM 10.2 mg/dL (8.4-10.2); CARBON DIOXIDE 30 mmol/L (22-30); CHLORIDE 102 mmol/L (98-107); GLUCOSE 107 mg/dL (75-110); POTASSIUM 4.4 mmol/L (3.6-5.0); TOTAL PROTEIN 7.5 g/dL (6.3-8.2)
[2019-08-11 13:19] LABS: A TYPE INFLUENZA AG NEGATIVE (NEGATIVE)
[2019-08-11 13:20] LABS: B INFLUENZA AG NEGATIVE (NEGATIVE)
[2019-08-11] MEDS ORDERED: NORMAL SALINE 500 ML IV ONE (14:17)
--- NOTE | 2019-08-11 14:54 | RADIOLOGY REPORT (SQ) ---
EXAM DESCRIPTION: CHEST SINGLE VIEW IMAGES COMPLETED DATE/TIME: 08/11/2019 2:45 pm REASON FOR STUDY: dizziness/vertigo COMPARISON: 2012. NUMBER OF VIEWS: One view. TECHNIQUE: Single frontal radiographic view of the chest acquired. LIMITATIONS: None. FINDINGS: LUNGS AND PLEURA: No opacities, masses or pneumothorax. No pleural effusion. Attenuated bl ood vessels and flattened clement-diaphragms. MEDIASTINUM AND HILAR STRUCTURES: No masses. Contour normal. HEART AND VASCULAR STRUCTURES: Heart normal in size. Normal vasculature. BONES: No acute findings. HARDWARE: None in the chest. OTHER: No other significant finding. IMPRESSION: COPD. NO ACUTE RADIOGRAPHIC FINDING IN THE CHEST. TECHNICAL DOCUMENTATION: JOB ID: [id number] 2010 [employer] [place]- All Rights Reserved Reading location - IP/workstation name: [email or web address]
--- NOTE | 2019-08-11 16:27 | RADIOLOGY REPORT (SQ) ---
EXAM DESCRIPTION: CT HEAD WITHOUT IMAGES COMPLETED DATE/TIME: 08/11/2019 3:10 pm REASON FOR STUDY: dizziness COMPARISON: None. TECHNIQUE: Axial images acquired through the brain without intravenous contrast. Images reviewed wi th bone, brain and subdural windows. Additional sagittal and coronal reconstructions were generated. Images stored on PACS. All CT scanners at this facility use dose modulation, iterative reconstruction, and/or weight based d osing when appropriate to reduce radiation dose to as low as reasonably achievable (ALARA). [facility]: Dose Right [facility]: CareDose [facility]: Dose Right [facility]: Teradose 4D [facility]: Smart GroupSw[employer] RADIATION DOSE: CT Rad equipment meets quality standard of care and radiation dose reduction techniq ues were employed. CTDIvol: 53.2 mGy. DLP: 937 mGy-cm. mGy. LIMITATIONS: None. FINDINGS: VENTRICLES: Normal size and contour. CEREBRUM: No masses. No hemorrhage. No midline shift. No evidence for acute infarction. Normal gra y/white matter differentiation. Mild patchy periventricular and deep white matter hypodense attenuat ion consistent with chronic small vessel ischemic change. CEREBELLUM: No masses. No hemorrhage. No alteration of density. No evidence for acute infarction. EXTRAAXIAL SPACES: No fluid collections. No masses. ORBITS AND GLOBE: Postoperative change left lobe unchanged. No intra- or extraconal masses. Normal contour of globe without masses. CALVARIUM: No fracture. PARANASAL SINUSES: No fluid or mucosal thickening. SOFT TISSUES: No mass or hematoma. OTHER: No other significant finding. IMPRESSION: No acute intracranial hemorrhage, mass, or evidence of acute territorial infarct. Mild chronic small vessel ischemic changes stable. EVIDENCE OF ACUTE STROKE: NO. COMMENT: Quality ID # [id number]: Final reports with documentation of one or more dose reduction techniques (e.g., Automated exposure control, adjustment of the mA and/or kV according to patient size, use of iterative reconstruction technique) TECHNICAL DOCUMENTATION: JOB ID: [id number] 2010 [employer]- All Rights Reserved Reading location - IP/workstation name: [email or web address]
[2019-08-11] MEDS ORDERED: ASPIRIN 81 MG TABLET, CHEWABLE PO ONE ×2 (16:46→16:50)
[2019-08-11] MEDS ORDERED: ASPIRIN 81 MG TABLET, CHEWABLE ONE (16:49)
[2019-08-11] MEDS ORDERED: MECLIZINE HCL 25 MG TABLET PO ONE (17:34)
[2019-08-11] MEDS ORDERED: ONDANSETRON 4 MG TAB.RAPDIS PO PRN (17:54)
[2019-08-11] MEDS ORDERED: ONDANSETRON HCL INJ/PF 4 MG/2 ML SDV IV PRN (17:54)
--- NOTE | 2019-08-11 18:35 | PDOC H&P ---
History of Present Illness Admission Date/PCP: 08/11/19 18:06 CHAPO LI MD History of Present Illness: RYAN SALEEM is a 74 year old female with past medical history significant for HLD, HTN who presented to ED after 1 day history of progressive dizziness and headache which began after she awoke from sleep and set up. She is also been having some frontal/maxillary sinus pressure which she states is consistent with her recurrent sinusitis and seasonal allergies. She denies any chest pain or shortness of breath at all. For reasons unknown, emergency department tested her for troponin and this came back elevated and the second value was essentially the same. EKG did not show any specific acute findings. Chest x- ray unremarkable. CT head unremarkable. Creatinine was mildly elevated from previous value in the chart at 1.32. 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 She states that this is at her baseline and has not changed at all. She states her PCP will typically give her amoxicillin for 7 days when the symptoms occur and this typically resolves without further issue. Past Medical History Cardiac Medical History: Reports: Coronary Artery Disease - "CAROTID ARTERY STENOSIS" SUBCLAVIAN STENOSIS LEFT BYPASS GRAFT 10/2010, Hyperlipidema, Hypertension, Peripheral Vascular Disease - "CAROTID ARTERY STENOSIS" SUBCLAVIAN STENOSIS LEFT BYPASS GRAFT 10/2010 Pulmonary Medical History: Reports: Chronic Obstructive Pulmonary Disease (COPD) - PER H&P" DENIES ON INTERVIEW Neurological Medical History: Reports: Migraine Musculoskeltal Medical History: Reports: Arthritis - LEFT HIP Hematology: Denies: Anemia, Sickle Cell Disease Past Surgical History Past Surgical History: Reports: Coronary Artery Bypass Graft - LEFT SUBCLAVIAN 10/2000, Hysterectomy, Orthopedic Surgery - Bilateral hip replacements, Tubal Ligation, Vascular Surgery, Other - Cataract surgery bilateral Denies: Amputation Social History Information Source: Patient, Emergency Med Personnel, COUNT INCLUDES [facility] Records Smoking Status: Former Smoker Frequency of Alcohol Use: Rare Hx Recreational Drug Use: No Hx Prescription Drug Abuse: No - Advance Directive Resuscitation Status: Do Not Resuscitate Surrogate healthcare decision maker:: Brother Family History Family History: Hypertension, Malignancy Parental Family History Reviewed: Yes Children Family History Reviewed: Yes Sibling(s) Family History Reviewed.: Yes Medication/Allergy Home Medications: Aspirin [Ecotrin 81 mg EC Tablet] 81 mg PO DAILY 05/04/12 Atorvastatin Calcium [Lipitor 40 mg Tablet] 40 mg PO QHS 05/04/12 Estrogens, Conjugated [Premarin 0.9 mg Tablet] 0.9 mg PO DAILY 05/04/12 Butalb/Acetaminophen/Caffeine [Fioricet (50-325-40 mg) Tablet] 1 tab PO PRN PRN 05/08/12 Amlodipine Besylate 5 mg PO DAILY 03/17/16 Imipramine HCl 10 mg PO DAILY 03/17/16 Losartan Potassium 50 mg PO DAILY 03/17/16 Cephalexin Monohydrate [Keflex 500 mg Capsule] 500 mg PO QID #20 capsule 03/10/19 Allergies/Adverse Reactions: Sulfa (Sulfonamide Antibiotics) Allergy (Intermediate, Verified 03/10/19 18:32) Hallucinations morphine [Morphine] Allergy (Unknown, Verified 03/10/19 18:32) Unknown reaction prednisone Allergy (Verified 03/10/19 18:32) procaine [Procaine] Adverse Reaction (Severe, Verified 03/10/19 18:32) UNKNOWN NOVACAINE Allergy (Severe, Uncoded 03/10/19 18:32) Unknown reaction Review of Systems All systems: reviewed and no additional remarkable complaints except as stated - As per HPI, otherwise negative Physical Exam Vital Signs: Temp Pulse Resp BP Pulse Ox 97.7 F 81 17 139/87 H 97 08/11/19 12:05 08/11/19 18:00 08/11/19 18:01 08/11/19 18:01 08/11/19 18:01 Intake & Output 08/10/19 08/11/19 08/12/19 06:59 06:59 06:59 Intake Total 500 Balance 500 Weight 64.864 kg General appearance: PRESENT: no acute distress, well-developed, well-nourished Head exam: PRESENT: atraumatic, normocephalic, other - Tender maxillary sinus and to a lesser degree frontal sinus when pressure is applied Eye exam: PRESENT: conjunctiva pink Mouth exam: PRESENT: moist Respiratory exam: PRESENT: clear to auscultation can. ABSENT: rales, rhonchi, wheezes Cardiovascular exam: PRESENT: RRR. ABSENT: diastolic murmur, rubs, systolic murmur GI/Abdominal exam: PRESENT: normal bowel sounds, soft. ABSENT: distended, guarding, mass, organolmegaly, rebound, tenderness Extremities exam: ABSENT: pedal edema Musculoskeletal exam: PRESENT: ambulatory Neurological exam: PRESENT: alert, awake, oriented to person, oriented to place, oriented to time, oriented to situation, CN II-XII grossly intact - With the exception of chronic left upper and lower facial droop which patient states is at her baseline. ABSENT: motor sensory deficit Psychiatric exam: PRESENT: appropriate affect, normal mood Skin exam: PRESENT: dry, intact, warm Results Laboratory Results: 08/11/19 12:36 08/11/19 12:36 08/11/19 08/11/19 12:36 12:36 WBC 5.8 RBC 4.02 Hgb 14.6 Hct 41.5 MCV 103 H MCH 36.3 H MCHC 35.1 RDW 14.9 H Plt Count 307 Seg Neutrophils % 77.4 Sodium 137.3 Potassium 4.4 Chloride 102 Carbon Dioxide 30 Anion Gap 5 BUN 22 H Creatinine 1.32 H Est GFR ( Amer) 47 L Glucose 107 Calcium 10.2 Total Bilirubin 0.8 AST 37 H Alkaline Phosphatase 131 H Total Protein 7.5 Albumin 4.4 08/11/19 08/11/19 12:36 15:56 Troponin I 0.209 0.260 Impressions: Chest X-Ray 08/11/19 14:18 IMPRESSION: COPD. NO ACUTE RADIOGRAPHIC FINDING IN THE CHEST. Head CT 08/11/19 14:19 IMPRESSION: No acute intracranial hemorrhage, mass, or evidence of acute territorial infarct. Mild chronic small vessel ischemic changes stable. EVIDENCE OF ACUTE STROKE: NO. Assessment and Plan - Diagnosis (1) Dizziness Is this a current diagnosis for this admission?: Yes Plan: Unclear etiology but suspect due to seasonal allergies and sinusitis; less likely stroke but cannot rule out posterior origin stroke CT head unremarkable Echocardiogram Carotid PVL MRI brain Permissive hypertension for 48 hours or until stroke ruled out which ever comes first Physical therapy consult Aspirin/statin Amoxicillin for 7 days Claritin, fluticasone nasal spray (2) Hypertension Is this a current diagnosis for this admission?: Yes Plan: Patient was unaware that she even had high blood pressure however this is noted in her chart and she is on multiple blood pressure medications Hold home medications for permissive hypertension or until MRI is read if it shows no stroke (3) Hyperlipidemia Is this a current diagnosis for this admission?: Yes Plan: Statin (4) Sinus pressure Is this a current diagnosis for this admission?: Yes Plan: As above (5) Sinusitis Is this a current diagnosis for this admission?: Yes Plan: Recurrent sinusitis Typically treated with amoxicillin per patient, she goes to her PCP and after treatment this does not recur for many months (6) Elevated troponin Is this a current diagnosis for this admission?: Yes Plan: Troponin I and II are flat, trending Echocardiogram EKG did not show acute findings If troponin continues rising consult cardiology Stress testing is reportedly not available at this facility right now due to coronavirus - Time Time Spent with patient: 35 or more minutes Medications reviewed and adjusted accordingly: Yes Anticipated discharge: Home Within: within 48 hours
--- NOTE | 2019-08-11 18:36 | ADVANCED CARE ---
- Diagnosis (1) Dizziness Diagnosis Current: Yes (2) Hypertension Diagnosis Current: Yes (3) Hyperlipidemia Diagnosis Current: Yes (4) Sinus pressure Diagnosis Current: Yes (5) Sinusitis Diagnosis Current: Yes (6) Elevated troponin Diagnosis Current: Yes Attendance: Patient Resuscitation Status: Do Not Resuscitate Discussion: All aspects of CODE STATUS discussed including cardioversion/chest compressions/intubation and patient states that she does not want to be full code and would rather be DNR/DNI. She designates her brother Vikram Haddad as her M POA. Time Spent: 17 minutes
--- NOTE | 2019-08-11 19:38 | RADIOLOGY REPORT (SQ) ---
EXAM DESCRIPTION: MRI HEAD WITHOUT IMAGES COMPLETED DATE/TIME: 08/11/2019 5:59 pm REASON FOR STUDY: Dizziness, possible CVA COMPARISON: None. TECHNIQUE: Multiplanar imaging includes non-contrasted T1, T2, FLAIR, and diffusion with ADC map seq uences. Images stored on PACS. LIMITATIONS: None. FINDINGS: ANATOMY: No anomalies. Normal vascular flow voids. Pituitary fossa normal. CSF SPACES: Normal in size and contour. No hemorrhage. CEREBRUM: Sulci and gyri normal in size and contour. Moderate patchy increased white matter signal o n FLAIR imaging. No evidence of hemorrhage, mass, or extraaxial fluid collection. POSTERIOR FOSSA: No signal alteration. No hemorrhage. No edema, masses or mass effect. Internal noelle tory canals, cerebello-pontine angles, mastoids normal. DIFFUSION IMAGING: Negative for acute or sub-acute infarction. ORBITS: No masses. Globes normal. PARANASAL SINUSES: No fluid levels. Mucosa normal. OTHER: No other significant finding. IMPRESSION: No acute intracranial hemorrhage, mass, or evidence of acute ischemia. Moderate chronic small vessel ischemic change. EVIDENCE OF ACUTE STROKE: NO. TECHNICAL DOCUMENTATION: JOB ID: [id number] 2010 [employer]- All Rights Reserved Reading location - IP/workstation name: [email or web address]
--- NOTE | 2019-08-11 19:46 | ER Document Report ---
Entered by SANDRA SERNA SCRIBE 08/11/19 1418 Acting as scribe for:JUAN C MERCEDES MD ED General - General Chief Complaint: Dizziness Stated Complaint: Sinus pressure sinus drainage cough Time Seen by Provider: 08/11/19 12:12 Mode of Arrival: Wheelchair Information source: Patient Notes: This 30 year old female patient presents to the emergency department today with complaints of dizziness. Patient states she woke up this morning with a frontal headache and dizziness. Patient states she had trouble walking around this morning and had to support herself on the wright. TRAVEL OUTSIDE OF THE [place] IN LAST 30 DAYS: No - Related Data Allergies/Adverse Reactions: Sulfa (Sulfonamide Antibiotics) Allergy (Intermediate, Verified 03/10/19 18:32) Hallucinations morphine [Morphine] Allergy (Unknown, Verified 03/10/19 18:32) Unknown reaction prednisone Allergy (Verified 03/10/19 18:32) procaine [Procaine] Adverse Reaction (Severe, Verified 03/10/19 18:32) UNKNOWN NOVACAINE Allergy (Severe, Uncoded 03/10/19 18:32) Unknown reaction Past Medical History - General Information source: Patient - Social History Smoking Status: Former Smoker Cigarette use (# per day): No Lives with: Alone Family History: Reviewed & Not Pertinent, Malignancy Patient has suicidal ideation: No Patient has homicidal ideation: No - Past Medical History Cardiac Medical History: Reports: Hx Coronary Artery Disease - "CAROTID ARTERY STENOSIS" SUBCLAVIAN STENOSIS LEFT BYPASS GRAFT 10/2010, Hx Hypercholesterolemia, Hx Hypertension, Hx Peripheral Vascular Disease - "CAROTID ARTERY STENOSIS" SUBCLAVIAN STENOSIS LEFT BYPASS GRAFT 10/2010 Pulmonary Medical History: Reports: Hx COPD - PER H&P" DENIES ON INTERVIEW Neurological Medical History: Reports: Hx Migraine, Other - Perez's palsy Musculoskeletal Medical History: Reports Hx Arthritis - LEFT HIP, Reports Hx Musculoskeletal Deformity Past Surgical History: Reports: Hx Coronary Artery Bypass Graft - LEFT SUBCLAVIAN 10/2000, Hx Hysterectomy, Hx Orthopedic Surgery - Bilateral hip replacements, Hx Tubal Ligation, Hx Vascular Surgery, Other - Cataract surgery bilateral - Immunizations Hx Diphtheria, Pertussis, Tetanus Vaccination: Yes Review of Systems - Review of Systems Constitutional: No symptoms reported EENT: No symptoms reported Cardiovascular: See HPI, Dizziness Respiratory: No symptoms reported Gastrointestinal: No symptoms reported Genitourinary: No symptoms reported Female Genitourinary: No symptoms reported Musculoskeletal: No symptoms reported Skin: No symptoms reported Hematologic/Lymphatic: No symptoms reported Neurological/Psychological: See HPI, Headaches -: Yes All other systems reviewed and negative Physical Exam - Vital signs Vitals: Temp Pulse Resp BP Pulse Ox 97.7 F 87 18 111/62 97 08/11/19 12:05 08/11/19 12:05 08/11/19 12:05 08/11/19 12:05 08/11/19 12:05 - General General appearance: Appears well, Alert - HEENT Head: Normocephalic, Atraumatic Eyes: Normal Pupils: PERRL Ears: Normal External canal: Cerumen impaction - Bilaterally R>L - Respiratory Respiratory status: No respiratory distress Chest status: Nontender Breath sounds: Normal Chest palpation: Normal - Cardiovascular Rhythm: Regular Heart sounds: Normal auscultation Murmur: No - Abdominal Inspection: Normal Distension: No distension Bowel sounds: Normal Tenderness: Nontender - Extremities General upper extremity: Normal inspection. No: Edema General lower extremity: Normal inspection. No: Edema - Neurological Neuro grossly intact: Yes Cognition: Normal Orientation: AAOx4 Speech: Normal Cerebellar coordination: Normal Motor strength normal: LUE, RUE, LLE, RLE - Psychological Associated symptoms: Normal affect, Normal mood - Skin Skin Temperature: Warm Skin Moisture: Dry Skin Color: Normal Course - Vital Signs Vital signs: Temp Pulse Resp BP Pulse Ox 97.7 F 81 17 139/87 H 97 08/11/19 12:05 08/11/19 18:00 08/11/19 18:01 08/11/19 18:01 08/11/19 18:01 - Laboratory Result Diagrams: 08/11/19 12:36 08/11/19 12:36 Laboratory results interpreted by me: 08/11/19 08/11/19 12:36 12:36 MCV 103 H MCH 36.3 H RDW 14.9 H BUN 22 H Creatinine 1.32 H Est GFR ( Amer) 47 L Est GFR (MDRD) Non-Af 39 L AST 37 H Alkaline Phosphatase 131 H - EKG Interpretation by Me Additional EKG results interpreted by me: 08/11/19 14:58 Twelve-lead EKG done 1453 shows normal sinus rhythm rate of 72 right atrial abnormality abnormal R wave progression consider lead placement abnormal T waves consider ischemia. Discharge - Discharge Clinical Impression: Dizziness, Elevated troponin I level Condition: Good Disposition: ADMITTED INPATIENT Admitting Provider: Kareem(Hospitalist) Unit Admitted: Telemetry ED NIH Stroke Scale - NIH Stroke Scale *: 1. NIH scale should be completed with appropriate accompanying assessment tools. *: 2. The NIH should reflect what the patient is capable of doing and should not be coached by the clinician. 1a. Level of Consciousness: 0=Alert;keenly responsive -: 1=Drowsy -: 2=Obtunded -: 3=Coma/unresponsive or reflex to noxious stimuli. 1a. Responses: 0 1b. Orientation Questions: a. What month is it? -: b. How old are you? -: 0=Answers both questions correctly. -: 1=Answers one question correctly or patient is intubated or has orotracheal trauma. -: 2=Answers neither question correctly. 1b. Responses: 0 1c. Response to commands: a. Open and close eyes? -: b. Line Director and release hand? -: Credit is given despite weakness. Demonstration of task is permitted. Substitute command if hands cannot be used. -: 0=Performs both tasks correctly -: 1=Performs one task correctly -: 2=Performs neither task correctly 1c. Responses: 0 2. Gaze: Establish eye contact and instruct patient to "Follow my finger" -: 0=Normal -: 1=Partial gaze palsy. Gaze is abnormal in one or both eyes, but where forced deviation or total gaze paresis is not present. -: 2=Forced deviation or total gaze paresis. 2. Responses: 0 3. Visual Pierson: Sees fingers in all four quadrants. -: 0=No visual loss. -: 1=Partial hemianopsia. -: 2=Complete hemianopsia. -: 3=Bilateral hemianopsia (including Cortical blindness) 3. Responses: 0 4. Facial Movement: Instruct patient to: -: a. Show me your teeth -: b. Raise your eyebrows -: c. Close your eyes -: d. Smile -: 0=Normal symmetrical movement -: 1=Minor paralysis (flattened nasolabial fold, asymmetry on smiling). -: 2=Partial paralysis (total or near total paralysis of lower face). -: 3=Complete paralysis of upper and lower face 4. 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 5. Motor functions (left arm): Alternate sides and extend each arm with palms down (90 degrees if sitting or 45 degrees for supine). -: 0=No drift;limb holds for full 10 seconds. -: 1=Drift; limb holds but drifts down before full 10 seconds, but does not hit bed. -: 2=Some effort against gravity; limb cannot get to or maintain position. -: 3=No effort against gravity; limb falls. -: 4=No movement. -: UN=Amputation, joint fusion, explain in comments. 5. Responses (left arm): 0 5. Motor Functions (right arm): Alternate sides and extend each arm with palms down (90 degrees if sitting or 45 degrees for supine). -: 0=No drift;limb holds for full 10 seconds. -: 1=Drift; limb holds but drifts down before full 10 seconds, but does not hit bed. -: 2=Some effort against gravity; limb cannot get to or maintain position. -: 3=No effort against gravity; limb falls. -: 4=No movement. -: UN=Amputation, joint fusion, explain in comments. 5. Responses (right arm): 0 6. Motor Functions (left leg): With patient lying supine, alternate sides and extend each leg (30 degrees always while supine). -: 0=No drift, leg holds position for full 5 seconds -: 1=Drift; leg falls before full 5 seconds but does not hit bed. -: 2=Some effort against gravity, leg falls to bed but some effort against gravity. -: 3=No effort against gravity, leg falls to bed immediately. -: 4=No movement. -: UN=Amputation, joint fusion; explain in comments. 6. Responses (left leg): 0 6. Motor Functions (right leg): With patient lying supine, alternate sides and extend each leg (30 degrees always while supine). -: 0=No drift, leg holds position for full 5 seconds -: 1=Drift; leg falls before full 5 seconds but does not hit bed. -: 2=Some effort against gravity, leg falls to bed but some effort against gravity. -: 3=No effort against gravity, leg falls to bed immediately. -: 4=No movement. -: UN=Amputation, joint fusion; explain in comments. 6. Responses (right leg): 0 7. Limb Ataxia: With eyes open instruct patient to: -: a. "Touch your finger to your nose". -: b. "Touch your heel to your ellis" -: 0=Absent -: 1=Present in one limb. -: 2=Present in two limbs. -: UN=Amputation or joint fusion; explain in comments. 7. Responses: 0 8. Sensory: Test sensation using pinprick or noxious stimuli. Test as many body parts as possible. -: 0=Normal;no sensory loss -: 1=Mile to moderate sensory loss (patient feels pin prick but is less sharp on affected side). -: 2=Severe or total sensory loss. 9. Best Language: Instruct patient to: -: a. "Describe what you see in this picture." -: b. "Name the items in this picture." -: c. "Read these sentences." -: 0=No aphasia, normal -: 1=Mild to moderate aphasia. -: 2=Severe aphasia -: 3=Mute, global aphasia, no usable speech or auditory comprehension. 9. Responses: 0 10. Articulation, Dysarthia: Instruct patient to: -: "Read these words" or "Repeat these words" -: 0=Normal -: 1=Mild to moderate; patient may slur some words but can be understood without difficulty. -: 2=Severe; patients speech so slurred as to be unintelligible in the absence of dysphasia. -: UN=Intubated or other physical barrier, explain in comments. 10. Responses: 0 11. Extinction or inattention: 0=No abnormality -: 1= Visual, tactile, auditory, spatial, or personal inattention or extinction to bilateral simulation in one or the sensory modalities. -: 2=Profound clement-inattention or clement-inattention to more than one modality; does not recognize own hand. 11. Responses: 0 Total Score: 1 I personally performed the services described in the documentation, reviewed and edited the documentation which was dictated to the scribe in my presence, and it accurately records my words and actions.
--- NOTE | 2019-08-11 20:47 | EKG REPORT ---
SEVERITY:- ABNORMAL ECG - SINUS RHYTHM BILATERAL ATRIAL ABNORMALITY ABNRM R PROG, CONSIDER OLD ASMI ABNORMAL T, CONSIDER ISCHEMIA, LATERAL LEADS : Confirmed by: Stefan Mosher MD 11-Aug-2019 20:46:26
[2019-08-11] MEDS ORDERED: FLUTICASONE NASAL SPRAY 50 MCG/SPRY 120 SPRAY/16 GM ONE (21:46)
[2019-08-11] MEDS ORDERED: AMOXICILLIN TRIHYDRATE 500 MG CAPSULE ONE (21:46)
[2019-08-11] MEDS: AMOXICILLIN TRIHYDRATE 500 MG CAPSULE PO SCH ×2 (22:11→22:12)
[2019-08-11] MEDS: LORATADINE 10 MG TABLET PO SCH (22:12)
[2019-08-11] MEDS: FLUTICASONE NASAL SPRAY 50 MCG/SPRY 120 SPRAY/16 GM NASL SCH (22:12)
[2019-08-12 06:17] LABS: ABSOLUTE EOSINOPHILS # (AUTO) 0.1 10^3/uL (0.0-0.6); ABSOLUTE LYMPHOCYTES (AUTO) 2.4 10^3/uL (0.5-4.7); ABSOLUTE MONOCYTES (AUTO) 0.5 10^3/uL (0.1-1.4); BASOPHILS % (AUTO) 0.6 % (0-2); EOSINOPHILS % (AUTO) 1.8 % (0-6); HEMATOCRIT 37.1 % (36.0-47.0); LYMPHOCYTES % (AUTO) 47.7 % (13-45); MEAN CORPUSCULAR VOLUME 103 fl (80-97); MONOCYTES % (AUTO) 9.4 % (3-13); PLATELET COUNT 273 10^3/uL (150-450); RED BLOOD COUNT 3.62 10^6/uL (3.72-5.28); RED CELL DISTRIBUTION WIDTH 14.3 % (11.5-14.0); SEGMENTED NEUTROPHILS % (AUTO) 40.5 % (42-78); TOTAL CELLS COUNTED % (AUTO) 100 %; WHITE BLOOD COUNT 4.9 10^3/uL (4.0-10.5)
[2019-08-12] MEDS: AMOXICILLIN TRIHYDRATE 500 MG CAPSULE PO SCH ×2 (06:22→14:38)
[2019-08-12 06:40] LABS: ANION GAP 5 (5-19); BLOOD UREA NITROGEN 19 mg/dL (7-20); CALCIUM 9.7 mg/dL (8.4-10.2); CARBON DIOXIDE 28 mmol/L (22-30); CHLORIDE 104 mmol/L (98-107); GLUCOSE 90 mg/dL (75-110); PHOSPHORUS 4.2 mg/dL (2.5-4.5); POTASSIUM 3.8 mmol/L (3.6-5.0)
[2019-08-12] MEDS: FLUTICASONE NASAL SPRAY 50 MCG/SPRY 120 SPRAY/16 GM NASL SCH (09:43)
[2019-08-12] MEDS: LORATADINE 10 MG TABLET PO SCH (09:43)
[2019-08-12] MEDS ORDERED: ENOXAPARIN SODIUM INJ 30 MG/0.3 ML DISP.SYRIN SUBCUT SCH (10:00)
[2019-08-12] MEDS ORDERED: NORMAL SALINE 1000 ML 1,000 ML IV PRN (13:20)
--- NOTE | 2019-08-12 13:24 | PDOC PROGRESS REPORT ---
Subjective Progress Note for:: 08/12/19 Subjective:: The patient is not complaining of any discomfort. She still has positive orthostatic vital signs. Reason For Visit: DIZZINESS/ELEVATED TROPONIN Physical Exam Vital Signs: Temp Pulse Resp BP Pulse Ox 97.9 F 89 16 128/71 H 97 08/12/19 11:23 08/12/19 11:23 08/12/19 11:23 08/12/19 11:23 08/12/19 11:23 Intake & Output 08/11/19 08/12/19 08/13/19 06:59 06:59 06:59 Intake Total 500 Balance 500 Weight 71.4 kg General appearance: PRESENT: no acute distress, cooperative, well-developed Head exam: PRESENT: atraumatic, normocephalic Eye exam: PRESENT: conjunctiva pink. ABSENT: scleral icterus Respiratory exam: PRESENT: clear to auscultation can, symmetrical, unlabored. ABSENT: prolonged expiratory phas, rales, rhonchi, tachypnea, wheezes Cardiovascular exam: PRESENT: RRR, +S1, +S2 GI/Abdominal exam: PRESENT: normal bowel sounds, soft. ABSENT: distended, guarding, tenderness Rectal exam: PRESENT: deferred Gentrourinary exam: ABSENT: indwelling catheter Extremities exam: ABSENT: pedal edema Musculoskeletal exam: PRESENT: normal inspection. ABSENT: deformity Neurological exam: PRESENT: alert, awake, oriented to person, oriented to place, oriented to time, oriented to situation, CN II-XII grossly intact. ABSENT: altered, motor sensory deficit Psychiatric exam: PRESENT: appropriate affect. ABSENT: agitated, anxious Focused psych exam: ABSENT: delusional, paranoid, restlessness Skin exam: PRESENT: dry, normal color, warm. ABSENT: rash Results Laboratory Results: 08/12/19 05:00 08/12/19 05:00 08/12/19 08/12/19 08/12/19 05:00 05:00 05:00 WBC 4.9 RBC 3.62 L Hgb 13.0 Hct 37.1 MCV 103 H MCH 36.0 H MCHC 35.0 RDW 14.3 H Plt Count 273 Seg Neutrophils % 40.5 L Sodium 137.4 Potassium 3.8 Chloride 104 Carbon Dioxide 28 Anion Gap 5 BUN 19 Creatinine 0.93 Est GFR ( Amer) > 60 Glucose 90 Calcium 9.7 Phosphorus 4.2 Magnesium 2.1 TSH 12.10 H 08/11/19 08/11/19 12:36 15:56 Troponin I 0.209 0.260 Impressions: Head MRI 08/11/19 00:00 IMPRESSION: No acute intracranial hemorrhage, mass, or evidence of acute ischemia. Moderate chronic small vessel ischemic change. EVIDENCE OF ACUTE STROKE: NO. Chest X-Ray 08/11/19 14:18 IMPRESSION: COPD. NO ACUTE RADIOGRAPHIC FINDING IN THE CHEST. Head CT 08/11/19 14:19 IMPRESSION: No acute intracranial hemorrhage, mass, or evidence of acute territorial infarct. Mild chronic small vessel ischemic changes stable. EVIDENCE OF ACUTE STROKE: NO. Assessment and Plan - Diagnosis (3) Hypertension Is this a current diagnosis for this admission?: Yes (4) Sinus pressure Is this a current diagnosis for this admission?: Yes
--- NOTE | 2019-08-12 13:58 | PDOC DISCHARGE SUMMARY ---
Impression - Admit/DC Date/PCP Admission Date/Primary Care Provider: 08/11/19 18:06 CHAPO LI MD Discharge Date: 08/12/19 - Discharge Diagnosis (1) Sinusitis Is this a current diagnosis for this admission?: Yes (2) Hypothyroid Is this a current diagnosis for this admission?: Yes (3) Sinus pressure Is this a current diagnosis for this admission?: Yes (4) Dizziness Is this a current diagnosis for this admission?: Yes (5) Hypertension Is this a current diagnosis for this admission?: Yes (6) Elevated troponin I level Is this a current diagnosis for this admission?: Yes - Additional Information Resuscitation Status: Do Not Resuscitate Referrals: CHAPO LI MD [Primary Care Provider] - Follow up as needed Prescriptions: Levothyroxine Sodium [Synthroid 0.05 mg Tablet] 50 mcg PO DAILY 30 Days #30 tablet Metoprolol Succinate [Toprol Xl 25 mg Tab.sr] 12.5 mg PO DAILY 30 Days #15 tab.sr.24h Home Medications: Amlodipine Besylate 5 mg PO DAILY 03/17/16 Imipramine HCl 10 mg PO QHS 03/17/16 Amoxicillin 875 mg PO BID 08/12/19 Amoxicillin Trihydrate [Amoxil 500 mg Capsule] 500 mg PO Q8 capsule 08/12/19 Aspirin [Ecotrin 81 mg EC Tablet] 81 mg PO DAILY tabec 08/12/19 Etodolac 400 mg PO Q8HP PRN 08/12/19 Fluticasone Propionate [Flonase Nasal Hope 50 Mcg/Hope 16 gm] 1 spray NASL DAILY spray.pump 08/12/19 Folic Acid [Folvite 1 mg Tablet] 1 mg PO DAILY 08/12/19 Levothyroxine Sodium [Synthroid 0.05 mg Tablet] 50 mcg PO DAILY 30 Days #30 tablet 08/12/19 Loratadine [Claritin 10 mg Tablet] 10 mg PO DAILY tablet 08/12/19 Methotrexate Sodium [Rheumatrex 2.5 mg Tablet] 20 mg PO WE@1000 08/12/19 Metoprolol Succinate [Toprol Xl 25 mg Tab.sr] 12.5 mg PO DAILY 30 Days #15 tab.sr.24h 08/12/19 Tofacitinib Citrate [Xeljanz Xr] 11 mg PO DAILY 08/12/19 History of Present Illiness History of Present Illness: RYAN SALEEM is a 74 year old femalewith past medical history significant for HLD, HTN who presented to ED after 1 day history of progressive dizziness and headache which began after she awoke from sleep and set up. She is also been having some frontal/maxillary sinus pressure which she states is consistent with her recurrent sinusitis and seasonal allergies. She denies any chest pain or shortness of breath at all. For reasons unknown, emergency department tested her for troponin and this came back elevated and the second value was essentially the same. EKG did not show any specific acute findings. Chest x- ray unremarkable. CT head unremarkable. Creatinine was mildly elevated from previous value in the chart at 1.32. 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 She states that this is at her baseline and has not changed at all. She states her PCP will typically give her amoxicillin for 7 days when the symptoms occur and this typically resolves without further issue. Hospital Course Hospital Course: The patient had an unremarkable hospital course. Continuing her antibiotics and adding Flonase helped with her sinus pressure. The dizziness may have been a vertigo related to her sinusitis. She was found to be hypothyroid and this can cause elevated troponins. I did have Dr. Serra see the patient and she will be evaluated further as an outpatient. She was in agreement for discharge to home. Physical Exam Vital Signs: Temp Pulse Resp BP Pulse Ox 97.9 F 89 16 128/71 H 97 08/12/19 11:23 08/12/19 11:23 08/12/19 11:23 08/12/19 11:23 08/12/19 11:23 Intake & Output 08/11/19 08/12/19 08/13/19 06:59 06:59 06:59 Intake Total 500 Balance 500 Weight 71.4 kg General appearance: PRESENT: no acute distress, cooperative, well-developed, other - Chronic left facial droop Head exam: PRESENT: atraumatic, normocephalic Eye exam: PRESENT: conjunctiva pink. ABSENT: scleral icterus Ear exam: PRESENT: normal external ear exam. ABSENT: bleeding, drainage Mouth exam: PRESENT: moist, tongue midline Respiratory exam: PRESENT: clear to auscultation can, symmetrical, unlabored. ABSENT: prolonged expiratory phas, rales, rhonchi, tachypnea Cardiovascular exam: PRESENT: RRR, +S1, +S2. ABSENT: diastolic murmur, irregular rhythm, systolic murmur GI/Abdominal exam: PRESENT: normal bowel sounds, soft. ABSENT: distended, guarding, tenderness Rectal exam: PRESENT: deferred Gentrourinary exam: ABSENT: indwelling catheter Extremities exam: ABSENT: pedal edema Musculoskeletal exam: PRESENT: ambulatory, full ROM, normal inspection. ABSENT: deformity Neurological exam: PRESENT: alert, awake, oriented to person, oriented to place, oriented to time, oriented to situation, CN II-XII grossly intact. ABSENT: altered, motor sensory deficit Psychiatric exam: PRESENT: appropriate affect, normal mood. ABSENT: agitated, anxious Focused psych exam: ABSENT: delusional, paranoid, restlessness Skin exam: PRESENT: dry, normal color, warm. ABSENT: rash Results Laboratory Results: WBC 4.9 10^3/uL (4.0-10.5) 08/12/19 05:00 RBC 3.62 10^6/uL (3.72-5.28) L 08/12/19 05:00 Hgb 13.0 g/dL (12.0-15.5) 08/12/19 05:00 Hct 37.1 % (36.0-47.0) 08/12/19 05:00 MCV 103 fl (80-97) H 08/12/19 05:00 MCH 36.0 pg (27.0-33.4) H 08/12/19 05:00 MCHC 35.0 g/dL (32.0-36.0) 08/12/19 05:00 RDW 14.3 % (11.5-14.0) H 08/12/19 05:00 Plt Count 273 10^3/uL (150-450) 08/12/19 05:00 Lymph % (Auto) 47.7 % (13-45) H 08/12/19 05:00 [place] % (Auto) 9.4 % (3-13) 08/12/19 05:00 Eos % (Auto) 1.8 % (0-6) 08/12/19 05:00 Baso % (Auto) 0.6 % (0-2) 08/12/19 05:00 Absolute Neuts (auto) 2.0 10^3/uL (1.7-8.2) 08/12/19 05:00 Absolute Lymphs (auto) 2.4 10^3/uL (0.5-4.7) 08/12/19 05:00 Absolute Monos (auto) 0.5 10^3/uL (0.1-1.4) 08/12/19 05:00 Absolute Eos (auto) 0.1 10^3/uL (0.0-0.6) 08/12/19 05:00 Absolute Basos (auto) 0.0 10^3/uL (0.0-0.2) 08/12/19 05:00 Seg Neutrophils % 40.5 % (42-78) L 08/12/19 05:00 Sodium 137.4 mmol/L (137-145) 08/12/19 05:00 Potassium 3.8 mmol/L (3.6-5.0) 08/12/19 05:00 Chloride 104 mmol/L (98-107) 08/12/19 05:00 Carbon Dioxide 28 mmol/L (22-30) 08/12/19 05:00 Anion Gap 5 (5-19) 08/12/19 05:00 BUN 19 mg/dL (7-20) 08/12/19 05:00 Creatinine 0.93 mg/dL (0.52-1.25) 08/12/19 05:00 Est GFR ( Amer) > 60 (>60) 08/12/19 05:00 Est GFR (MDRD) Non-Af 59 (>60) L 08/12/19 05:00 Glucose 90 mg/dL (75-110) 08/12/19 05:00 Calcium 9.7 mg/dL (8.4-10.2) 08/12/19 05:00 Phosphorus 4.2 mg/dL (2.5-4.5) 08/12/19 05:00 Magnesium 2.1 mg/dL (1.6-2.3) 08/12/19 05:00 Total Bilirubin 0.8 mg/dL (0.2-1.3) 08/11/19 12:36 Direct Bilirubin 0.0 mg/dL (0.0-0.4) 08/11/19 12:36 Neonat Total Bilirubin Not Reportable 08/11/19 12:36 Neonat Direct Bilirubin Not Reportable 08/11/19 12:36 Neonat Indirect Bili Not Reportable 08/11/19 12:36 AST 37 U/L (14-36) H 08/11/19 12:36 ALT 24 U/L (<35) 08/11/19 12:36 Alkaline Phosphatase 131 U/L (38-126) H 08/11/19 12:36 Troponin I 0.260 ng/mL 08/11/19 15:56 Total Protein 7.5 g/dL (6.3-8.2) 08/11/19 12:36 Albumin 4.4 g/dL (3.5-5.0) 08/11/19 12:36 TSH 12.10 uIU/mL (0.47-4.68) H 08/12/19 05:00 Influenza A (Rapid) NEGATIVE (NEGATIVE) 08/11/19 12:36 Influenza B (Rapid) NEGATIVE (NEGATIVE) 08/11/19 12:36 Group A Strep Rapid NEGATIVE (NEGATIVE) 08/11/19 12:36 08/11/19 08/11/19 12:36 15:56 Troponin I 0.209 0.260 Impressions: Head MRI 08/11/19 00:00 IMPRESSION: No acute intracranial hemorrhage, mass, or evidence of acute ischemia. Moderate chronic small vessel ischemic change. EVIDENCE OF ACUTE STROKE: NO. Chest X-Ray 08/11/19 14:18 IMPRESSION: COPD. NO ACUTE RADIOGRAPHIC FINDING IN THE CHEST. Head CT 08/11/19 14:19 IMPRESSION: No acute intracranial hemorrhage, mass, or evidence of acute territorial infarct. Mild chronic small vessel ischemic changes stable. EVIDENCE OF ACUTE STROKE: NO. Plan Health Concerns: Elevated troponin but this is most likely related to her hypothyroidism. New diagnosis of hypothyroidism and this may be contributing to her dizziness but the sinusitis is the more likely culprit. Plan of Treatment: We will continue antibiotic therapy and Flonase at home The patient will see Dr. Bailey as an outpatient for further cardiac evaluation Levothyroxine 50 mcg daily was initiated. Goals: Adequate treatment of hypothyroidism. Further evaluation with cardiology. Time Spent: Greater than 30 Minutes Stroke Is this a Stroke Patient?: No Acute Heart Failure - Is this a Heart Failure Patient?: No
[2019-08-12] MEDS ORDERED: ASPIRIN 81 MG TABLET, ENT COATED PO SCH (14:00)
--- NOTE | 2019-08-12 14:05 | EKG REPORT ---
SEVERITY:- BORDERLINE ECG - SINUS RHYTHM PROBABLE LEFT ATRIAL ABNORMALITY : Confirmed by: Stefan Mosher MD 12-Aug-2019 14:04:28
[2019-08-12 14:07] VITALS: BP 111/62
--- NOTE | 2019-08-12 16:30 | PDOC CONSULTATION ---
Consultation-Blank Consultation: CARDIOLOGY CONSULTATION by Dr. Corina Serra on 08/12/2019. Patient seen at 2 PM. 60 minutes spent with patient more than 50% of time spent in direct patient care. REASON FOR CONSULTATION: Patient with no acute EKG changes and no chest pain admitted with elevated troponin high level and hence cardiology consultation to assess significance of the elevated troponin. CONSULT REQUESTING PHYSICIAN: Dr[facility] John shaihk, [facility]. HISTORY OF PRESENT ILLNESS: Patient is a 74-year-old female with history of hypertension hyperlipidemia and no history of coronary artery disease or prior history of VA or angina, came to the emergency room for symptoms of vertigo intermittent since last night. She also was having sinus pressure. She had a troponin I level drawn which showed elevation of the troponin I level. The patient's initial EKG shows some minor nonspecific lateral T changes with the subsequent EKG being normal. Of note the patient was also found to have elevated TSH consistent with a new diagnosis of hypothyroidism. The patient on repeated questioning denies any chest pain or discomfort. There is no typical or atypical symptoms suggestive of angina. There is no nausea vomiting or shortness of breath. There is no palpitations there is no PND orthopnea. She denies any history of prior coronary artery disease. She on the H&P just said that the patient has had a prior history of left subclavian stenosis surgery with the bypass. But the patient states she had a left upper extremity vein surgery but does not remember since it was very long time ago. She has no subclavian steal steal syndrome symptoms. 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 She denies any diabetes mellitus. There is no history of TIA or CVA. The patient's troponin I have not serially elevated but are basically around the same level. That her elevation in troponin is most likely secondary to spuriously level due to interference with heterophile antibodies and also there is in the literature stating that in some patients with hypothyroidism especially females over 60 have an elevated troponin levels also. Hence this is clearly noncardiac. The patient is very anxious to go home. She is a DNI. Past Medical History Cardiac Medical History: Reports:- ? LEFT SUBCLAVIAN STENOSIS LEFT BYPASS GRAFT 10/2010, Hyperlipidema, Hypertension, Peripheral Vascular Disease - "CAROT ID ARTERY STENOSIS" SUBCLAVIAN STENOSIS LEFT BYPASS GRAFT 10/2010 Pulmonary Medical History: No history of asthma or COPD or pulmonary embolism or sleep apnea. Neurological Medical History: Reports: Migraine. 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 No history of TIA or CVA or seizures. Musculoskeltal Medical History: Reports: Arthritis - LEFT HIP Hematology: Denies: Anemia, Sickle Cell Disease ENDOCRINOLOGY: Denies history of diabetes mellitus. Not known to be hypothyroid patient. RENAL: Denies any history of chronic renal disease but the patient's GFR is slightly reduced. PSYCHIATRIC: Seems to be very forgetful denies dementia denies anxiety or depression, but the patient is on imipramine. Past Surgical History Past Surgical History: Reports:?LEFT SUBCLAVIAN 10/2000, Hysterectomy [patient states she has left upper extremity vein surgery], Orthopedic Surgery - Bilateral hip replacements, Tubal Ligation, Vascular Surgery, Other - Cataract surgery bilateral Denies: Amputation Social History Information Source: Patient, Emergency Med Personnel, [facility] Records Smoking Status: Former Smoker Frequency of Alcohol Use: Rare Hx Recreational Drug Use: No Hx Prescription Drug Abuse: No - Advance Directive Resuscitation Status: Do Not Resuscitate Surrogate healthcare decision maker:: Brother Family History Family History: Hypertension, Malignancy. Denies family history of coronary artery disease. No history of sudden in the family. Parental Family History Reviewed: Yes Children Family History Reviewed: Yes Sibling(s) Family History Reviewed.: Yes Medication/Allergy Home Medications: Aspirin [Ecotrin 81 mg EC Tablet] 81 mg PO DAILY 05/04/12 Atorvastatin Calcium [Lipitor 40 mg Tablet] 40 mg PO QHS 05/04/12 Estrogens, Conjugated [Premarin 0.9 mg Tablet] 0.9 mg PO DAILY 05/04/12 Butalb/Acetaminophen/Caffeine [Fioricet (50-325-40 mg) Tablet] 1 tab PO PRN PRN 05/08/12 Amlodipine Besylate 5 mg PO DAILY 03/17/16 Imipramine HCl 10 mg PO DAILY 03/17/16 Losartan Potassium 50 mg PO DAILY 03/17/16 Cephalexin Monohydrate [Keflex 500 mg Capsule] 500 mg PO QID #20 capsule 03/10/19 Allergies/Adverse Reactions: She is allergic to sulfa, morphine, prednisone, procaine and Novocain. REVIEW OF SYSTEMS: CONSTITUTIONAL: Denies fever chills or rigors. HEAD: Complains of sinus pressure which she states happens off and on. No history of headaches or head injury. EYES: No history of amblyopia diplopia no history of amaurosis fugax. EARS: History of intermittent vertigo which is new at present seems to have resolved. No history of earache or discharge from the ear no history of tinnitus. No history of hearing loss. NOSE: History of seasonal allergies present but no history of hayfever. No nosebleeds and no nasal polyps. MOUTH: No altered taste sensation no history of bleeding from the gums. THROAT: No history of odynophagia or dysphagia no history of recurrent sore throats. SKIN: No history of skin lesions or skin skin rashes. No pruritus. No yellowish discoloration of the skin. NECK: No swelling in the neck no neck pain. LUNGS: No symptoms of upper or lower respiratory tract infection. No wheezing no cough or sputum production. No hemoptysis. CARDIAC: No history of coronary artery disease. No history of anginal symptoms. No history of congestive heart failure. No history of palpitations or cardiac arrhythmia. No history of PND orthopnea or leg edema. GI: Denies history of GERD or GI bleed. No history of fatty food intolerance. She has had a cholecystectomy in the past. No history of abdominal pain. No history of GI bleed. No history of hepatitis. ENDOCRINE: No history of polydipsia polyuria. No history of heat or cold intolerance. Patient's TSH elevated and newly diagnosed as having hypothyroidism. RENAL: Denies history of chronic kidney disease, but the patient's GFR is reduced.? Acute versus chronic. No symptoms of hematuria pyuria or dysuria. Also musculoskeletal: No history of collagen vascular diseas e. History of osteoarthritis present. RADIO TIME BUYER: No history of TIA CVA. Old Perez's palsy with left-sided facial droop no recurrence. History of migraines present no history of seizures. PSYCHIATRIC: No history of suicidal ideation. No homicidal ideation. The patient is not agitated or confused she is forgetful. VASCULAR: History of? Left subclavian stenosis status post surgery. Not clear on that. No history of calf or buttock claudication. HEMATOLOGICAL: No history of bleeding diathesis. No history of clotting disorders. PHYSICAL EXAMINATION: The patient is well-built and well-nourished. In no acute distress. Selected Entries 08/12/19 08/12/19 08/12/19 11:23 12:00 14:05 Temperature 97.9 F 97.9 F Temperature Oral Source Pulse Rate 89 89 Heart Rate ( 94 Monitors) Respiratory 16 16 Rate Blood Pressure 128/71 H Blood Pressure 111/62 [Right Upper Arm] Blood Pressure 90 Mean BP Location Right Arm BP Position Supine O2 Sat by Pulse 97 97 Oximetry Oxygen Delivery Room Air Method HEAD: Atraumatic, normocephalic. FACE: Left facial droop secondary to old Perez's palsy. EYES: Pupils equal round and reactive to light, extraocular movements intact, sclera anicteric, conjunctiva are normal. ENT: TMs normal, nares patent, oropharynx clear without exudates. Moist mucous membranes. NECK: Normal range of motion, supple without lymphadenopathy or JVD. LUNGS: Breath sounds clear to auscultation bilaterally and equal. No wheezes rales or rhonchi. There is no chest wall tenderness HEART: S1-S2 is heard. S1 is of normal intensity. There is no S3 gallop. There is no S4 gallop. There is systolic murmur left sternal border and the apex, there is no rub ABDOMEN: Soft, nontender, normoactive bowel sounds. No guarding, no rebound. No masses appreciated. EXTREMITIES: Normal range of motion, no pitting or edema. No clubbing or cyanosis. NEUROLOGICAL: Cranial nerves II through XII grossly intact. Normal speech, normal gait. 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 Sensations are normal bilaterally. PSYCH: Normal mood, normal affect. His judgment and insight are intact SKIN: Warm, Dry, normal turgor, no rashes or lesions noted. Labs- Entire Visit 08/11/19 08/11/19 08/11/19 12:36 12:36 12:36 WBC 5.8 RBC 4.02 Hgb 14.6 Hct 41.5 MCV 103 H MCH 36.3 H MCHC 35.1 RDW 14.9 H Plt Count 307 Lymph % (Auto) 13.9 [place] % (Auto) 8.1 Eos % (Auto) 0.3 Baso % (Auto) 0.3 Absolute Neuts (auto) 4.5 Absolute Lymphs (auto) 0.8 Absolute Monos (auto) 0.5 Absolute Eos (auto) 0.0 Absolute Basos (auto) 0.0 Seg Neutrophils % 77.4 Sodium 137.3 Potassium 4.4 Chloride 102 Carbon Dioxide 30 Anion Gap 5 BUN 22 H Creatinine 1.32 H Est GFR ( Amer) 47 L Est GFR (MDRD) Non-Af 39 L Glucose 107 Calcium 10.2 Phosphorus Magnesium Total Bilirubin 0.8 Direct Bilirubin 0.0 Neonat Total Bilirubin Not Reportable Neonat Direct Bilirubin Not Reportable Neonat Indirect Bili Not Reportable AST 37 H ALT 24 Alkaline Phosphatase 131 H Troponin I Total Protein 7.5 Albumin 4.4 TSH Influenza A (Rapid) Influenza B (Rapid) Group A Strep Rapid NEGATIVE 08/11/19 08/11/19 08/11/19 12:36 12:36 15:56 WBC RBC Hgb Hct MCV MCH MCHC RDW Plt Count Lymph % (Auto) [place] % (Auto) Eos % (Auto) Baso % (Auto) Absolute Neuts (auto) Absolute Lymphs (auto) Absolute Monos (auto) Absolute Eos (auto) Absolute Basos (auto) Seg Neutrophils % Sodium Potassium Chloride Carbon Dioxide Anion Gap BUN Creatinine Est GFR ( Amer) Est GFR (MDRD) Non-Af Glucose Calcium Phosphorus Magnesium Total Bilirubin Direct Bilirubin Neonat Total Bilirubin Neonat Direct Bilirubin Neonat Indirect Bili AST ALT Alkaline Phosphatase Troponin I 0.209 0.260 Total Protein Albumin TSH Influenza A (Rapid) NEGATIVE Influenza B (Rapid) NEGATIVE Group A Strep Rapid 08/12/19 08/12/19 08/12/19 05:00 05:00 05:00 WBC 4.9 RBC 3.62 L Hgb 13.0 Hct 37.1 MCV 103 H MCH 36.0 H MCHC 35.0 RDW 14.3 H Plt Count 273 Lymph % (Auto) 47.7 H [place] % (Auto) 9.4 Eos % (Auto) 1.8 Baso % (Auto) 0.6 Absolute Neuts (auto) 2.0 Absolute Lymphs (auto) 2.4 Absolute Monos (auto) 0.5 Absolute Eos (auto) 0.1 Absolute Basos (auto) 0.0 Seg Neutrophils % 40.5 L Sodium 137.4 Potassium 3.8 Chloride 104 Carbon Dioxide 28 Anion Gap 5 BUN 19 Creatinine 0.93 Est GFR ( Amer) > 60 Est GFR (MDRD) Non-Af 59 L Glucose 90 Calcium 9.7 Phosphorus 4.2 Magnesium 2.1 Total Bilirubin Direct Bilirubin Neonat Total Bilirubin Neonat Direct Bilirubin Neonat Indirect Bili AST ALT Alkaline Phosphatase Troponin I Total Protein Albumin TSH 12.10 H Influenza A (Rapid) Influenza B (Rapid) Group A Strep Rapid 08/12/19 13:57 WBC RBC Hgb Hct MCV MCH MCHC RDW Plt Count Lymph % (Auto) [place] % (Auto) Eos % (Auto) Baso % (Auto) Absolute Neuts (auto) Absolute Lymphs (auto) Absolute Monos (auto) Absolute Eos (auto) Absolute Basos (auto) Seg Neutrophils % Sodium Potassium Chloride Carbon Dioxide Anion Gap BUN Creatinine Est GFR ( Amer) Est GFR (MDRD) Non-Af Glucose Calcium Phosphorus Magnesium Total Bilirubin Direct Bilirubin Neonat Total Bilirubin Neonat Direct Bilirubin Neonat Indirect Bili AST ALT Alkaline Phosphatase Troponin I 0.228 Total Protein Albumin TSH Influenza A (Rapid) Influenza B (Rapid) Group A Strep Rapid EKG #1: Sinus rhythm nonspecific minor T changes lateral leads. EKG #2 shows sinus rhythm probable left atrial abnormality otherwise within normal limits. IMPRESSION/RECOMMENDATION: 1. Elevated troponin I with no significant EKG changes and no anginal symptoms typical or atypical. This probably is secondary to a spuriously elevation due to the patient's renal failure and her hypothyroidism causing spuriously elevation in the patient's troponin I. No evidence of non-ST elevation VA or acute coronary syndrome. Patient is very anxious and adamant to go home and does not want any further testing will try to get the patient to have an outpatient testing in the office. The patient's cardiac status is stable. Would recommend adding a beta-dante continue the patient's aspirin continue amlodipine and follow-up as an outpatient. Patient given my cell phone number and to come back to the hospital or call me if she has any further or new problems. Later we will schedule patient for echocardiogram to assess the patient's systolic murmur and for LV ejection fraction, and as a IV Lexiscan Cardiolite stress test. This can be done as an outpatient. 2. HYPOTHYROIDISM: This is a new diagnosis. We will start the patient on a small dose of Synthroid. 3. Most likely acute renal failure: The patient GFR on admission was 39 and is come up to 59 with hydration. Most likely the patient was dehydrated. Will follow this as an outpatient. 4. Hypertension: Seems to be well-controlled continue current medication. 5. Hyper lipidemia: Continue statin 6. Old Perez's palsy on the left side: Stable. 7. Systolic murmur: Doubt significant valvular disease, but to buttress this opinion will get an outpatient echocardiogram to assess murmur and due to elevated troponin I. The patient is anxious to go home she appears to be quite stable cardiac perez we will discharge the patient home and follow the patient up in the office. Medical decision making is of high complexity. Discussed medication changes with attending physician and also discussed medical regimen and management plan with the attending provider Dr. Espinoza. 60 minutes spent as patient more than 50% time spent in direct patient care. The patient has an appointment to see me this coming Tuesday that is 08/15/2019 at 1 PM in my office. The patient has my cell phone number to call me if she has any problems.
[2019-08-12] MEDS ORDERED: IMIPRAMINE HCL 10 MG TABLET PO SCH (22:00)
--- NOTE | 2019-08-13 07:32 | EKG REPORT ---
SEVERITY:- ABNORMAL ECG - SINUS RHYTHM VENTRICULAR PREMATURE COMPLEX PROBABLE LEFT ATRIAL ABNORMALITY ABNORMAL T, CONSIDER ISCHEMIA, LATERAL LEADS : Confirmed on behalf of: Stefan Mosher MD 13-Aug-2019 07:31:47
[2019-08-13] MEDS ORDERED: FOLIC ACID 1 MG TABLET PO SCH (10:00)
== END 2019-08-12 14:58 | disposition home or self-care (01) | DRG 153 ==
LOC: ER 12:01 → EH 18:06 → 3W 19:03 → OBSVTOIN 08-12 13:29
PROVIDERS: ADMIT Internal Medicine; ATTEND Hospitalist
DX: J32.0 Chronic maxillary sinusitis (principal); N17.9 Acute kidney failure, unspecified; R42 Dizziness and giddiness; R51 Headache; E03.9 Hypothyroidism, unspecified; R01.1 Cardiac murmur, unspecified; I25.10 Atherosclerotic heart disease of native coronary artery without angina pectoris; I10 Essential (primary) hypertension; E78.00 Pure hypercholesterolemia, unspecified; R29.701 NIHSS score 1; R29.810 Facial weakness; Z60.2 Problems related to living alone; Z66 Do not resuscitate; Z88.5 Allergy status to narcotic agent; Z88.2 Allergy status to sulfonamides; Z88.8 Allergy status to other drugs, medicaments and biological substances; Z95.5 Presence of coronary angioplasty implant and graft; Z79.82 Long term (current) use of aspirin; Z79.890 Hormone replacement therapy; Z79.899 Other long term (current) drug therapy
CPT/HCPCS: 36415; 70450; 70551; 71045; 80048; 80053; 83735; 84100; 84443; 84484; 85025; 87070; 87804; 87880; 93005; 93010; 96360; 99285; J1650; J7040